=== PATIENT | male | born 1950 | race Caucasian/White ===

== ENCOUNTER 2017-07-31 08:54 | Inpatient (IN) | payer MEDICARE, MEDICAID ==
[2017-07-31 08:54] VITALS: PULSE 160
[2017-07-31 08:57] VITALS: BMI 33.3
[2017-07-31] MEDS ORDERED: Sodium Chloride 0.9% 1,000 ML IV ONE (09:14)
--- NOTE | 2017-07-31 09:14 | C.PDOC ---
History Of Present Illness Patient is a 67 yo male, with PMHx of PVD, who presents to the ED with a complaint of bilateral leg pain. Patient was referred to ED by Dr. Anguiano. He reports R groin and R hip pain with associated swelling; reports L calf tightness and numbness. Symptoms have been persistent for the last year since a L femoral/popliteal bypass last year, reports worsening pain since procedure. He notes physical therapy worsened symptoms immediately after surgery. Patient reports to have taken blood thinners but has stopped taking them for the past 3- 4 months; takes Tylenol and Tramadol as needed. Denies chest pain, shortness of breath, or other associated symptoms. Time Seen by Provider: 07/31/17 09:03 Chief Complaint (Nursing): Lower Extremity Problem/Injury History Per: Patient History/Exam Limitations: no limitations Onset/Duration Of Symptoms: Days, Persistent Current Symptoms Are (Timing): Still Present - Hip Currently Unable To: Bear Weight (uses walker and wheelchair. ) - Knee Currently Unable To: Bear Weight Past Medical History Reviewed: Historical Data, Nursing Documentation, Vital Signs Vital Signs: Last Vital Signs Temp 97.7 F 07/31/17 08:58 Pulse 62 07/31/17 08:58 Resp 20 07/31/17 08:58 BP 107/66 07/31/17 08:58 Pulse Ox 97 07/31/17 09:47 - Medical History PMH: Anemia, Benign Prostatic Hyperplasia, Depression, HIV, HTN, Hypercholesterolemia, Peripheral Edema Denies: Hepatitis - [facility] BYPASS L FEM ART TO POPLIT ART WITH AUTOL VN, OPEN APPROACH (05/31/16) OCCLUSION OF LEFT POPLITEAL ARTERY, OPEN APPROACH (05/31/16) REPAIR RIGHT FEMORAL ARTERY, OPEN APPROACH (03/31/16) TRANSFUSE NONAUT RED BLOOD CELLS IN PERIPH VEIN, PERC (05/31/16) Family History: States: Unknown Family Hx - Social History Hx Alcohol Use: Yes Hx Substance Use: Yes - Immunization History Hx Tetanus Toxoid Vaccination: No Hx Influenza Vaccination: No Hx Pneumococcal Vaccination: No Review Of Systems Constitutional: Negative for: Fever, Chills Cardiovascular: Negative for: Chest Pain, Palpitations, Edema Respiratory: Negative for: Shortness of Breath Gastrointestinal: Negative for: Nausea, Vomiting Musculoskeletal: Positive for: Leg Pain Physical Exam - Physical Exam Appears: Well, Non-toxic, In Acute Distress (mild. ) Skin: Normal Color, Warm, Dry Head: Atraumatic, Normacephalic Oral Mucosa: Moist Chest: Symmetrical Cardiovascular: Rhythm Regular, No Murmur Respiratory: Normal Breath Sounds, No Rales, No Rhonchi, No Wheezing Gastrointestinal/Abdominal: Soft, No Tenderness Extremity: Tenderness, No Pedal Edema, Capillary Refill (< 2 sec.), Other (good profusion; chronic post-op scarring, no mass, skin intact. ) Pulses: Left Dorsalis Pedis: Normal, Right Dorsalis Pedis: Normal Neurological/Psych: Oriented x3, Normal Speech, Normal Motor, Normal Sensation Gait: With Assistance ED Course And Treatment - Laboratory Results Result Diagrams: 07/31/17 09:35 07/31/17 09:35 ECG: Interpreted By Me ECG Rhythm: Sinus Bradycardia Rate From EC (bpm) O2 Sat by Pulse Oximetry: 97 (Room air) Pulse Ox Interpretation: Normal - Radiology CXR: Interpreted by Me CXR Interpretation: Yes: No Acute Disease Progress - Re-Evaluation Re-evaluation Note: 07/31/17 09:14 Blood work, EKG, UA, and CXR ordered; Morphine and IV fluids administered. 07/31/17 09:[address] Glez - agrees upon admission. - Data Reviewed Data Reviewed: Lab, Diagnostic imaging, EKG, Old records Disposition Counseled Patient/Family Regarding: Studies Performed, Diagnosis - Disposition Disposition: HOSPITALIZED Disposition Time: 09:34 Condition: STABLE Forms: [facility] (Italian) - POA Present On Arrival: None - Clinical Impression Clinical Impression: PVD (peripheral vascular disease) with claudication - Scribe Statement The provider has reviewed the documentation as recorded by the Scribe Amber Peña All medical record entries made by the Scribe were at my direction and personally dictated by me. I have reviewed the chart and agree that the record accurately reflects my personal performance of the history, physical exam, medical decision making, and the department course for this patient. I have also personally directed, reviewed, and agree with the discharge instructions and disposition. Decision To Admit - Pt Status Changed To: Hospital Disposition Of: Inpatient - Admit Certification Admit to Inpatient:: After my assessment, the patient will require hospitalization for at least two midnights. This is because of the severity of symptoms shown, intensity of services needed, and/or the medical risk in this patient being treated as an outpatient. - InPatient: Physician Admission Certification: I certify that this patient requires 2 or more midnights of care for the following reason:: SEE NOTE - . Bed Request Type: Regular Admitting Physician: George Glez Patient Diagnosis: PVD (peripheral vascular disease) with claudication
--- NOTE | 2017-07-31 09:38 | RAD ---
PROCEDURE: CHEST RADIOGRAPH, 1 VIEW HISTORY: Pre Op COMPARISON: None available. FINDINGS: LUNGS: Poor inspiration with low lung volumes, mild crowded bronchovascular markings and mild bibasilar atelectasis. PLEURA: No pneumothorax or pleural fluid seen. CARDIOVASCULAR: Heart appears upper limits of normal/borderline enlarged. OSSEOUS STRUCTURES: No significant abnormalities. VISUALIZED UPPER ABDOMEN: Normal. OTHER FINDINGS: None. IMPRESSION: Poor inspiration with low lung volumes, mild crowded bronchovascular markings and mild bibasilar atelectasis.
[2017-07-31 09:41] LABS: BASO # 0.1 K/uL (0.0-0.2); BASO % 1.2 % (0.0-2.0); EOS % 15.8 % (0.0-4.0); HEMATOCRIT 39.2 % (35.0-51.0); LYMPH # 1.6 K/uL (1.0-4.3); LYMPH % 25.9 % (20.0-40.0); MEAN CORPUSCULAR HEMOGLOBIN 30.1 pg (27.0-31.0); MEAN CORPUSCULAR HGB CONC 33.1 g/dL (33.0-37.0); MEAN PLATELET VOLUME 9.3 fL (7.2-11.7); MONO # 0.7 K/uL (0.0-0.8); MONO % 12.1 % (0.0-10.0); NRBC % 0.1 % (0.0-2.0)
[2017-07-31 09:46] LABS: WHITE BLOOD COUNT 6.2 K/uL (4.8-10.8)
[2017-07-31 09:47] LABS: INR 1.1
[2017-07-31] MEDS ORDERED: Sodium Chloride 0.9% 1,000 ML ONE (09:48)
[2017-07-31 09:49] LABS: CHLORIDE 107 mmol/L (98-107); SODIUM 144 mmol/L (132-148)
[2017-07-31 09:50] LABS: POTASSIUM 4.6 mmol/L (3.6-5.2)
[2017-07-31 09:51] LABS: GFR AFRICAN-AMERICAN > 60
[2017-07-31 09:52] LABS: ALB/GLOB RATIO 0.9 (1.0-2.1); ALKALINE PHOSPHATASE 109 U/L (38-126); ALT/SGPT 78 U/L (21-72); AST/SGOT 61 U/L (17-59); BILIRUBIN,TOTAL 0.5 mg/dL (0.2-1.3); BLOOD UREA NITROGEN 22 mg/dL (9-20); CARBON DIOXIDE 24 mmol/L (22-30); GLUCOSE,RANDOM 93 mg/dL (75-110); TOTAL PROTEIN 7.6 g/dL (6.3-8.3)
[2017-07-31 09:53] LABS: CALCIUM 7.9 mg/dl (8.6-10.4)
--- NOTE | 2017-07-31 15:18 | CP.PCM.PN ---
Subjective - Date & Time of Evaluation Date of Evaluation: 07/31/17 Time of Evaluation: 15:14 - Subjective Subjective: plan right fem pop bypass previous 03/2016 ligation of ruptured popliteal aneurysm and subsequent repair of left side -2015 right leg symptoms have increased and had cta in may showing favorable anatomy for repair Objective - Vital Signs/Intake and Output Vital Signs (last 24 hours): Temp Pulse Resp BP Pulse Ox 97.4 F L 50 L 20 120/63 96 07/31/17 12:40 07/31/17 13:23 07/31/17 12:40 07/31/17 12:40 07/31/17 12:40 Intake and Output: 07/31/17 07/31/17 06:59 18:59 Intake Total 780 Balance 780 - Medications Medications: Current Medications Amiodarone HCl (Cordarone) 200 mg PO DAILY [facility] Aspirin (Aspirin Chewable) 81 mg PO DAILY [facility] Diltiazem HCl (Cardizem) 30 mg PO QID [facility] Divalproex Sodium (Depakote Sprinkles) 125 mg PO BID [facility] Docusate Sodium (Colace) 100 mg PO TID [facility] Last Admin: 07/31/17 14:01 Dose: 100 mg Efavirenz/Emtricitabine/Tenofovir (Atripla 600 Mg-200 Mg-300 Mg) 1 tab PO HS [facility] Famotidine (Pepcid) 20 mg PO DAILY [facility] Ferrous Sulfate (Feosol) 325 mg PO DAILY [facility] Fluoxetine HCl (Prozac) 40 mg PO DAILY [facility] Gabapentin (Neurontin) 100 mg PO TID [facility] Last Admin: 07/31/17 14:01 Dose: 100 mg Home Med (Amino Acids/Protein Hydrolys [Pro-Stat Profile Liquid]) 30 ml PO DAILY [facility] Hydrochlorothiazide (Microzide) 12.5 mg PO DAILY [facility] Sodium Chloride (Sodium Chloride 0.9%) 1,000 mls @ 100 mls/hr IV .Q10H ONE Stop: 07/31/17 19:13 Last Admin: 07/31/17 09:51 Dose: 100 mls/hr Isosorbide Mononitrate (Imdur) 30 mg PO DAILY [facility] Mirtazapine (Remeron) 7.5 mg PO HS [facility] Rosuvastatin Calcium (Crestor) 20 mg PO HS [facility] Tamsulosin HCl (Flomax) 0.4 mg PO DAILY [facility] Tramadol HCl (Ultram) 50 mg PO TID PRN PRN Reason: Pain, moderate (4-7) Last Admin: 07/31/17 14:29 Dose: 50 mg Trazodone HCl (Desyrel) 50 mg PO HS PRN PRN Reason: Insomnia - Labs Labs: 07/31/17 09:35 07/31/17 09:35 PT 12.4 SECONDS (9.7-12.2) H 07/31/17 09:35 INR 1.1 07/31/17 09:35 APTT 36 SECONDS (21-34) H 07/31/17 09:35
--- NOTE | 2017-07-31 15:54 | CP.PCM.PN ---
Subjective - Date & Time of Evaluation Date of Evaluation: 07/31/17 Time of Evaluation: 09:00 - Subjective Subjective: CC: b/l lower extremity numbness and tingling for approximately 1 year HPI: Patient is a 67 yo AA male with PMHx of PVD, BPH, Depression, HIV, HTN, HLD , Peripheral Edema, 3 prior MIs - who presents to the ED with a complaint of bilateral lower extremity numbness and tingling for approximately 1 year, with associated intermittent pain. Patient was seen by Dr. Anguiano last week for similar symptoms. More specifically, he reports right medial ankle numbness x1yr and left anterior langley numbness x1yr, progressively worsening after a L femoral/popliteal bypass on 04/2016. The intermittent pain of the b/l LE typically occurs 4-5 nights per week, when his feet swell (most notably after physical therapy). He rates the pain a 7/10, denies radiation, and finds relief with 2-3 tabs of Tylenol. Due to issues with circulation, he recently had a cardiac cath, which according to the patient, showed clean vessels (pt unsure of date). Since this cardiac cath, he is c/o mild right groin/thigh pain at the insertion site. He currently attends physical therapy 2 times per week, on and off for the last year. Patient reports to have taken blood thinners but has stopped taking them for the past 3-4 months. He Denies fevers, chills, chest pain, shortness of breath, abdominal pain, nausea, vomiting, or any other associated symptoms. PMHx: PVD, BPH, Depression, HIV, HTN, HLD, Peripheral Edema, 3 prior MIs PSHx: Right femoral artery repair (03/2016); Left femoral artery bypass (05/2016) , Cardiac cath - clean vessels per pt. (via R groin) Meds: see EMR Allergies: NKDA FamHx: Mom of CA at 29yo (unknown type); Dad in 80's (unknown cause) SocHx: Tobacco, EtOH, and heroin use socially (states has not used in several months). [place] disability. PMD: Dr. Glez Review of Systems: -Gen: denies fever, chills, headache, lethargy, weakness. -HEENT: denies dizziness, change in vision, change in hearing, sore throat, dysphagia, nasal congestion, mucous. -Cardio: denies chest pain, palpitations, lower extremity edema, orthopnea. -Resp: denies cough, dyspnea, hemoptysis, wheezing, pain on inspiration. -GI: denies abdominal pain, nausea/vomiting, diarrhea/constipation, hematochezia , hematemesis. -: denies dysuria, urinary freq, incontinence, hematuria, change in urinary stream. -MSK: +numbness/tingling of bilateral LE. +pain at R groin (prior cardiac cath site). denies back pain, muscle weakness, radiating pain. -Skin: denies itching, rash, lesions. -Neuro: denies confusion, numbness, tingling, focal weakness, radicular pain, syncope. -Psych: denies anxiety, depression, H/I, S/I, hallucinations. Objective - Vital Signs/Intake and Output Vital Signs (last 24 hours): Temp Pulse Resp BP Pulse Ox 97.4 F L 50 L 20 120/63 96 07/31/17 12:40 07/31/17 13:23 07/31/17 12:40 07/31/17 12:40 07/31/17 12:40 Intake and Output: 07/31/17 07/31/17 06:59 18:59 Intake Total 780 Balance 780 - Medications Medications: Current Medications Amiodarone HCl (Cordarone) 200 mg PO DAILY [facility] Aspirin (Aspirin Chewable) 81 mg PO DAILY [facility] Diltiazem HCl (Cardizem) 30 mg PO QID [facility] Divalproex Sodium (Depakote Sprinkles) 125 mg PO BID [facility] Docusate Sodium (Colace) 100 mg PO TID [facility] Last Admin: 07/31/17 14:01 Dose: 100 mg Efavirenz/Emtricitabine/Tenofovir (Atripla 600 Mg-200 Mg-300 Mg) 1 tab PO HS [facility] Famotidine (Pepcid) 20 mg PO DAILY [facility] Ferrous Sulfate (Feosol) 325 mg PO DAILY [facility] Fluoxetine HCl (Prozac) 40 mg PO DAILY [facility] Gabapentin (Neurontin) 100 mg PO TID [facility] Last Admin: 07/31/17 14:01 Dose: 100 mg Home Med (Amino Acids/Protein Hydrolys [Pro-Stat Profile Liquid]) 30 ml PO DAILY [facility] Hydrochlorothiazide (Microzide) 12.5 mg PO DAILY [facility] Sodium Chloride (Sodium Chloride 0.9%) 1,000 mls @ 100 mls/hr IV .Q10H ONE Stop: 07/31/17 19:13 Last Admin: 07/31/17 09:51 Dose: 100 mls/hr Isosorbide Mononitrate (Imdur) 30 mg PO DAILY [facility] Mirtazapine (Remeron) 7.5 mg PO HS [facility] Rosuvastatin Calcium (Crestor) 20 mg PO HS [facility] Tamsulosin HCl (Flomax) 0.4 mg PO DAILY [facility] Tramadol HCl (Ultram) 50 mg PO TID PRN PRN Reason: Pain, moderate (4-7) Last Admin: 07/31/17 14:29 Dose: 50 mg Trazodone HCl (Desyrel) 50 mg PO HS PRN PRN Reason: Insomnia - Labs Labs: 07/31/17 09:35 07/31/17 09:35 PT 12.4 SECONDS (9.7-12.2) H 07/31/17 09:35 INR 1.1 07/31/17 09:35 APTT 36 SECONDS (21-34) H 07/31/17 09:35 - Additional Findings Additional findings: - Constitutional Appears: No Acute Distress - Head Exam Head Exam: ATRAUMATIC, NORMAL INSPECTION, NORMOCEPHALIC - Eye Exam Eye Exam: EOMI, Normal appearance - ENT Exam ENT Exam: Mucous Membranes Moist - Neck Exam Neck exam: Positive for: Normal Inspection - Respiratory Exam Respiratory Exam: Clear to Auscultation Bilateral, NORMAL BREATHING PATTERN. absent: Wheezes - Cardiovascular Exam Cardiovascular Exam: REGULAR RHYTHM, +S1, +S2 - GI/Abdominal Exam GI & Abdominal Exam: Normal Bowel Sounds, Soft - Rectal Exam Rectal Exam: Deferred - Extremities Exam Extremities exam: Positive for: normal capillary refill. Negative for: calf tenderness, joint swelling, pedal edema Additional comments: right medial thigh tenderness right medial ankle numbness x1yr left anterior langley numbness x1yr scar noted on Left medial thigh running from thigh to calf (approx. 10 inches) - Neurological Exam Neurological exam: Alert, CN II-XII Intact, Oriented x3 - Psychiatric Exam Psychiatric exam: Normal Affect, Normal Mood - Skin Skin Exam: Warm, Dry, Intact Assessment and Plan - Assessment and Plan (Free Text) Assessment: PVD (peripheral vascular disease) with claudication 07/31: Pre-op preparation for tentative fem-pop bypass . f/u with Cardiology recs. EKG - sinus marissa Vascular surgery consult, Dr. 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 Atkins, f/u recs pre-op eval Crestor 20 mg PO HS [facility] Ultram 50 mg PO TID PRN f/u A1c, lipids, TSH, free T4 BPH Continue home meds Flomax) 0.4 mg PO DAILY [facility] HIV Continue home meds Efavirenz/Emtricitabine/Tenofovir (Atripla 600 Mg-200 Mg-300 Mg) 1 tab PO HS [facility] HTN BP 107/66 on admission Continue home meds Amiodarone HCl (Cordarone) 200 mg PO DAILY [facility] Diltiazem HCl (Cardizem) 30 mg PO QID [facility] - hold for HR <65bpm HCTZ 12.5 mg PO DAILY [facility] Imdur 30 mg PO DAILY [facility] Aspirin (Aspirin Chewable) 81 mg PO DAILY [facility] Depression Depakote Sprinkles 125 mg PO BID [facility] Prozac 40 mg PO DAILY [facility] Trazodone 50 mg PO HS PRN Remeron 7.5 mg PO HS [facility] Hx Anemia Continue home meds Feosol) 325 mg PO DAILY [facility] Prophylaxis SCDs Heparin 5000u SC Q8H Colace 100 mg PO TID [facility] Pepcid 20 mg PO DAILY [facility]
--- NOTE | 2017-07-31 16:20 | CP.PCM.CON ---
History of Present Illness - History of Present Illness History of Present Illness: CC: "My right and left legs hurt below the knees." Patient is a 67 year old male with a past medical history of BPH, depression, HIV, HTN and HLD, who complains of bilateral lower extremity pain below the knees. Patient states the pain began 1 year ago after having a femoral/popliteal bypass procedure on the left lower extremity. Patient states the pain is made better by Tramadol and worse by walking. Patient describes the quality of the pain as "burning" with associated numbness and a "pins and needles" sensation. Patient denies radiation and rates the pain in both legs as 7-8/10 in severity. Patient states the pain is worse at night. Patient denies chest pain, palpitations, shortness of breath, nausea, vomiting and diarrhea. PMH: BPH, Depression, HIV, HTN and HLD PSH: femoral/popliteal bypass (2016), unknown heart surgery Meds: see chart NKDA Review of Systems - Constitutional Constitutional: absent: Chills, Fever, Night Sweats - Cardiovascular Cardiovascular: absent: Chest Pain, Dyspnea on Exertion, Rapid Heart Rate - Respiratory Respiratory: absent: Dyspnea, Wheezing, Pain on Inspiration - Gastrointestinal Gastrointestinal: absent: Abdominal Pain, Constipation, Diarrhea, Nausea, Vomiting - Genitourinary Genitourinary: Difficulty Urinating, Urinary Frequency, Voiding Freq/Small Amts. absent: Dysuria - Musculoskeletal Musculoskeletal: Numbness, Tingling - Neurological Neurological: Burning Sensations, Paresthesias Past Patient History - Infectious Disease Hx of Infectious Diseases: None - Past Medical History & Family History Past Medical History?: Yes - Past Social History Smoking Status: Former Smoker - CARDIAC Hx Hypercholesterolemia: Yes Hx Hypertension: Yes Hx Peripheral Edema: Yes - PULMONARY Hx Tuberculosis: No - NEUROLOGICAL Hx Seizures: No - HEENT Hx HEENT Problems: No - RENAL Hx Chronic Kidney Disease: No - ENDOCRINE/METABOLIC Hx Endocrine Disorders: No - HEMATOLOGICAL/ONCOLOGICAL Hx Anemia: Yes Hx Human Immunodeficiency Virus (HIV): Yes - INTEGUMENTARY Hx Dermatological Problems: Yes (? OOZING RT. THIGH) Other/Comment: dry skin and feet - MUSCULOSKELETAL/RHEUMATOLOGICAL Hx Falls: No - GASTROINTESTINAL Hx Gastrointestinal Disorders: Yes Other/Comment: CONSTIPATION - GENITOURINARY/GYNECOLOGICAL Hx Sexually Transmitted Disorders: No - PSYCHIATRIC Hx Substance Use: No - SURGICAL HISTORY Hx Surgeries: Yes Other/Comment: fem pop 2015 right leg , may 2016 left leg fem pop by dr narayan - ANESTHESIA Hx Anesthesia: No Hx Anesthesia Reactions: No Meds Allergies/Adverse Reactions: Allergies Allergy/AdvReac Type Severity Reaction Status Date / Time No Known Allergies Allergy Verified 07/31/17 09:11 - Medications Medications: Current Medications Amiodarone HCl (Cordarone) 200 mg PO DAILY [facility] Aspirin (Aspirin Chewable) 81 mg PO DAILY [facility] Diltiazem HCl (Cardizem) 30 mg PO QID [facility] Divalproex Sodium (Depakote Sprinkles) 125 mg PO BID [facility] Docusate Sodium (Colace) 100 mg PO TID [facility] Last Admin: 07/31/17 14:01 Dose: 100 mg Efavirenz/Emtricitabine/Tenofovir (Atripla 600 Mg-200 Mg-300 Mg) 1 tab PO HS [facility] Famotidine (Pepcid) 20 mg PO DAILY [facility] Ferrous Sulfate (Feosol) 325 mg PO DAILY [facility] Fluoxetine HCl (Prozac) 40 mg PO DAILY [facility] Gabapentin (Neurontin) 100 mg PO TID [facility] Last Admin: 07/31/17 14:01 Dose: 100 mg Home Med (Amino Acids/Protein Hydrolys [Pro-Stat Profile Liquid]) 30 ml PO DAILY [facility] Hydrochlorothiazide (Microzide) 12.5 mg PO DAILY [facility] Sodium Chloride (Sodium Chloride 0.9%) 1,000 mls @ 100 mls/hr IV .Q10H ONE Stop: 07/31/17 19:13 Last Admin: 07/31/17 09:51 Dose: 100 mls/hr Isosorbide Mononitrate (Imdur) 30 mg PO DAILY [facility] Mirtazapine (Remeron) 7.5 mg PO HS [facility] Rosuvastatin Calcium (Crestor) 20 mg PO HS [facility] Tamsulosin HCl (Flomax) 0.4 mg PO DAILY [facility] Tramadol HCl (Ultram) 50 mg PO TID PRN PRN Reason: Pain, moderate (4-7) Last Admin: 07/31/17 14:29 Dose: 50 mg Trazodone HCl (Desyrel) 50 mg PO HS PRN PRN Reason: Insomnia Physical Exam - Constitutional Appears: Non-toxic, No Acute Distress, Unkempt - Head Exam Head Exam: ATRAUMATIC, NORMOCEPHALIC - Eye Exam Eye Exam: EOMI, PERRL Pupil Exam: PERRL - ENT Exam ENT Exam: Mucous Membranes Moist - Respiratory Exam Respiratory Exam: Clear to Auscultation Bilateral. absent: Rales, Rhonchi, Wheezes, Stridor - Cardiovascular Exam Cardiovascular Exam: Bradycardia, +S1, +S2. absent: Clicks, Diastolic murmur, Irregular Rhythm, Rubs, Systolic Murmur - GI/Abdominal Exam GI & Abdominal Exam: Normal Bowel Sounds, Rebound, Soft. absent: Distended, Firm, Guarding, Organomegaly, Tenderness - Rectal Exam Rectal Exam: Deferred - Extremities Exam Extremities exam: Positive for: calf tenderness, tenderness. Negative for: pedal pulses present - Back Exam Back exam: absent: CVA tenderness (L), CVA tenderness (R), rash noted - Neurological Exam Neurological exam: Alert, Oriented x3 Results - Vital Signs Recent Vital Signs: Last Vital Signs Temp 97.7 F 07/31/17 15:40 Pulse 51 L 07/31/17 15:40 Resp 20 07/31/17 15:40 BP 101/59 L 07/31/17 15:40 Pulse Ox 96 07/31/17 15:40 - Labs Result Diagrams: 07/31/17 09:35 07/31/17 09:35 Labs: Laboratory Results - last 24 hr 07/31/17 07/31/17 07/31/17 09:35 09:35 09:35 WBC 6.2 D RBC 4.31 L Hgb 13.0 D Hct 39.2 MCV 91.0 D MCH 30.1 MCHC 33.1 RDW 14.0 Plt Count 215 MPV 9.3 Neut % (Auto) 45.0 L Lymph % (Auto) 25.9 [place] % (Auto) 12.1 H Eos % (Auto) 15.8 H Baso % (Auto) 1.2 Neut # 2.8 Lymph # 1.6 [place] # 0.7 Eos # 1.0 H Baso # 0.1 PT 12.4 H INR 1.1 APTT 36 H Sodium 144 Potassium 4.6 Chloride 107 Carbon Dioxide 24 Anion Gap 17 BUN 22 H Creatinine 1.0 Est GFR ( Amer) > 60 Est GFR (Non-Af Amer) > 60 Random Glucose 93 Calcium 7.9 L Total Bilirubin 0.5 AST 61 H ALT 78 H D Alkaline Phosphatase 109 Total Protein 7.6 Albumin 3.6 Globulin 4.0 H Albumin/Globulin Ratio 0.9 L Blood Type Antibody Screen 07/31/17 09:35 WBC RBC Hgb Hct MCV MCH MCHC RDW Plt Count MPV Neut % (Auto) Lymph % (Auto) [place] % (Auto) Eos % (Auto) Baso % (Auto) Neut # Lymph # [place] # Eos # Baso # PT INR APTT Sodium Potassium Chloride Carbon Dioxide Anion Gap BUN Creatinine Est GFR ( Amer) Est GFR (Non-Af Amer) Random Glucose Calcium Total Bilirubin AST ALT Alkaline Phosphatase Total Protein Albumin Globulin Albumin/Globulin Ratio Blood Type O POSITIVE Antibody Screen Negative Assessment & Plan - Assessment and Plan (Free Text) Assessment: 67M with RLE claudication Plan: will obtain lower extremity vein mapping in preparation for bypass lower extremity ABIs type and screen pre-op clearance from primary tentative plan for OR fem-pop bypass d/w Dr Silvio Robison, PGY3
[2017-07-31] MEDS: Divalproex 125 mg Sprinkle Capsule PO SCH (17:30)
[2017-07-31] MEDS: Efavirenz/Emtricitabine/Teno 1 TAB PO SCH (21:34)
[2017-08-01] MEDS ORDERED: Aminophylline 25 mg/ml Inj ONE (07:26)
[2017-08-01 08:01] LABS: BASO # 0.1 K/uL (0.0-0.2); BASO % 1.4 % (0.0-2.0); EOS # 0.9 K/uL (0.0-0.7); EOS % 16.7 % (0.0-4.0); HEMATOCRIT 38.3 % (35.0-51.0); LYMPH # 1.6 K/uL (1.0-4.3); LYMPH % 29.5 % (20.0-40.0); MEAN CELL VOLUME 90.5 fL (80.0-94.0); MEAN CORPUSCULAR HEMOGLOBIN 29.9 pg (27.0-31.0); MEAN PLATELET VOLUME 9.6 fL (7.2-11.7); MONO # 0.6 K/uL (0.0-0.8); MONO % 11.1 % (0.0-10.0); NRBC % 0.2 % (0.0-2.0); RED CELL DISTRIBUTION WIDTH 13.6 % (11.5-14.5); WHITE BLOOD COUNT 5.4 K/uL (4.8-10.8)
[2017-08-01 08:12] LABS: INR 1.1
[2017-08-01 08:23] LABS: CHLORIDE 108 mmol/L (98-107); POTASSIUM 4.3 mmol/L (3.6-5.2); SODIUM 139 mmol/L (132-148)
[2017-08-01 08:25] LABS: AST/SGOT 74 U/L (17-59); BILIRUBIN,TOTAL 0.5 mg/dL (0.2-1.3); BLOOD UREA NITROGEN 24 mg/dL (9-20); CARBON DIOXIDE 23 mmol/L (22-30); CHOLESTEROL 130 mg/dL (0-199); GFR AFRICAN-AMERICAN > 60; TOTAL PROTEIN 7.3 g/dL (6.3-8.3)
[2017-08-01 08:26] LABS: ALKALINE PHOSPHATASE 96 U/L (38-126); ALT/SGPT 79 U/L (21-72); CALCIUM 7.8 mg/dl (8.6-10.4); GLUCOSE,RANDOM 78 mg/dL (75-110); MAGNESIUM 1.8 mg/dL (1.6-2.3); PHOSPHOROUS 4.2 mg/dL (2.5-4.5)
[2017-08-01 08:34] LABS: ALB/GLOB RATIO 0.9 (1.0-2.1)
--- NOTE | 2017-08-01 08:41 | CP.PCM.PN ---
Subjective - Date & Time of Evaluation Date of Evaluation: 08/01/17 Time of Evaluation: 08:15 - Subjective Subjective: stress test performed. await nuclear images. Objective - Vital Signs/Intake and Output Vital Signs (last 24 hours): Temp Pulse Resp BP Pulse Ox 98.0 F 52 L 20 120/71 94 L 08/01/17 07:10 08/01/17 07:10 08/01/17 07:10 08/01/17 07:10 08/01/17 07:10 Intake and Output: 08/01/17 08/01/17 06:59 18:59 Intake Total 740 Output Total 1510 Balance -770 - Medications Medications: Current Medications Amiodarone HCl (Cordarone) 200 mg PO DAILY [facility] Aspirin (Aspirin Chewable) 81 mg PO DAILY [facility] Diltiazem HCl (Cardizem) 30 mg PO QID [facility] Divalproex Sodium (Depakote Sprinkles) 125 mg PO BID [facility] Last Admin: 07/31/17 17:30 Dose: 125 mg Docusate Sodium (Colace) 100 mg PO TID [facility] Last Admin: 07/31/17 17:29 Dose: 100 mg Efavirenz/Emtricitabine/Tenofovir (Atripla 600 Mg-200 Mg-300 Mg) 1 tab PO HS [facility] Last Admin: 07/31/17 21:34 Dose: 1 tab Famotidine (Pepcid) 20 mg PO DAILY [facility] Ferrous Sulfate (Feosol) 325 mg PO DAILY [facility] Fluoxetine HCl (Prozac) 40 mg PO DAILY [facility] Gabapentin (Neurontin) 100 mg PO TID [facility] Last Admin: 07/31/17 17:29 Dose: 100 mg Heparin Sodium (Porcine) (Heparin) 5,000 units SC Q8 [facility] Last Admin: 08/01/17 05:32 Dose: 5,000 units Home Med (Amino Acids/Protein Hydrolys [Pro-Stat Profile Liquid]) 30 ml PO DAILY [facility] Hydrochlorothiazide (Microzide) 12.5 mg PO DAILY [facility] Isosorbide Mononitrate (Imdur) 30 mg PO DAILY [facility] Mirtazapine (Remeron) 7.5 mg PO HS [facility] Last Admin: 07/31/17 21:34 Dose: 7.5 mg Rosuvastatin Calcium (Crestor) 20 mg PO HS [facility] Last Admin: 07/31/17 21:37 Dose: 20 mg Tamsulosin HCl (Flomax) 0.4 mg PO DAILY [facility] Tramadol HCl (Ultram) 50 mg PO TID PRN PRN Reason: Pain, moderate (4-7) Last Admin: 08/01/17 00:18 Dose: 50 mg Trazodone HCl (Desyrel) 50 mg PO HS PRN PRN Reason: Insomnia - Labs Labs: 08/01/17 07:32 08/01/17 07:32 PT 12.6 SECONDS (9.7-12.2) H 08/01/17 07:32 INR 1.1 08/01/17 07:32 APTT 41 SECONDS (21-34) H D 08/01/17 07:32
--- NOTE | 2017-08-01 08:41 | CP.PCM.CON ---
History of Present Illness - History of Present Illness History of Present Illness: patient seen/examined. Patient is a 67 year old male with a history of CAD, PAD with known SFA occlusion being admitted for possible R fem pop bypass. The patient was found to have SFA occlusion on CT angiogram. He complains of dyspnea on exertion and angina. Symptoms occur intermittently, but have been progressive. Review of Systems - Constitutional Constitutional: absent: As Per HPI, Anorexia, Chills, Daytime Sleepiness, Excessive Sweating, Fatigue, Fever, Frequent Falls, Headache, Increased Appetite , Lethargy, Malaise, Night Sweats, Snoring, Sleep Apnea, Weight Gain, Weight Loss, Weakness, Other - EENT Eyes: absent: As Per HPI, Blind Spots, Blurred Vision, Change in Vision, Decreased Night Vision, Diplopia, Discharge, Dry Eye, Exophthalmos, Floaters, Irritation, Itchy Eyes, Loss of Peripheral Vision, Pain, Photophobia, Requires Corrective Lenses, Sees Flashes, Spots in Vision, Tunnel Vision, Other Visual Disturbances, Loss of Vision, Other Ears: absent: As Per HPI, Decreased Hearing, Ear Discharge, Ear Pain, Tinnitus, Abnormal Hearing, Disequilibrium, Dizziness, Other Nose/Mouth/Throat: absent: As Per HPI, Epistaxis, Nasal Congestion, Nasal Discharge, Nasal Obstruction, Nasal Trauma, Nose Pain, Post Nasal Drip, Sinus Pain, Sinus Pressure, Bleeding Gums, Change in Voice, Dental Pain, Dry Mouth, Dysphagia, Halitosis, Hoarsness, Lip Swelling, Mouth Lesions, Mouth Pain, Odynophagia, Sore Throat, Throat Swelling, Tongue Swelling, Facial Pain, Neck Pain, Neck Mass, Other - Cardiovascular Cardiovascular: Chest Pain at Rest, Dyspnea - Respiratory Respiratory: Dyspnea - Gastrointestinal Gastrointestinal: absent: As Per HPI, Abdominal Pain, Belching, Bloating, Change in Bowel Habits, Change in Stool Character, Coffee Ground Emesis, Constipation, Cramping, Diarrhea, Dyspepsia, Dysphagia, Early Satiety, Excessive Flatus, Fecal Incontinence, Heartburn, Hematemesis, Hematochezia, Loose Stools, Melena, Nausea, Odynophagia, Temesmus, Vomiting, Other - Genitourinary Genitourinary: absent: As Per HPI, Change in Urinary Stream, Difficulty Urinating, Dysuria, Flank Pain, Hematuria, Pyuria, Nocturia, Urinary Incontinence, Urinary Frequency, Urinary Hesitance, Urinary Urgency, Voiding Freq/Small Amts, Freq UTI, Hx Renal/Bladder Calculi, Hx /Renal Surgery, Bladder Distension, Other - Musculoskeletal Musculoskeletal: absent: As Per HPI, Abnormal Gait, Arthralgias, Atrophy, Back Pain, Deformity, Joint Swelling, Limited Range of Motion, Loss of Height, Muscle Cramps, Muscle Weakness, Myalgias, Neck Pain, Numbness, Radiating Pain into Limb, Stiffness, Tingling, Other - Integumentary Integumentary: absent: As Per HPI, Acne, Alopecia, Bleeding Lesions, Change in Hair, Change in Nails, Change in Pigmentation, Changing Lesions, Dry Skin, Erythema, Furuncle, Hirsutism, Lesions, New Lesions, Non-Healing Lesions, Photosensitivity, Pruritus, Rash, Skin Pain, Skin Ulcer, Sores, Striae, Swelling , Unusual Bruising, Wounds, Jaundice, Other - Neurological Neurological: absent: As Per HPI, Abnormal Gait, Abnormal Hearing, Abnormal Movements, Abnormal Speech, Behavioral Changes, Burning Sensations, Confusion, Convulsions, Disequilibrium, Dizziness, Numbness, Focal Weakness, Frequent Falls , Headaches, Lack of Coordination, Loss of Vision, Memory Loss, Paresthesias, Radicular Pain, Restless Legs, Sensory Deficit, Syncope, Tingling, Tremor, Vertigo, Weakness, Other Visual Disturbances, Other - Psychiatric Psychiatric: absent: As Per HPI, Abnormal Sleep Pattern, Anhedonia, Anxiety, Auditory Hallucinations, Behavioral Changes, Change in Appetite, Change in Libido, Confusion, Depression, Difficulty Concentrating, Hallucinations, Homicidal Ideation, Hopelessness, Irritability, Memory Loss, Mood Swings, Panic Attacks, Paranoia, Suicidal Ideation, Visual Hallucinations, Tactile Hallucinations, Other - Endocrine Endocrine: absent: As Per HPI, Change in Body Appearance, Change in Libido, Cold Intolorance, Deepening of Voice, Excessive Sweating, Fatigue, Flushing, Heat Intolorance, Increase in Ring/Shoe/Hat Size, Palpitations, Polydipsia, Polyphagia, Polyuria, Other Past Patient History - Infectious Disease Hx of Infectious Diseases: None - Past Medical History & Family History Past Medical History?: Yes - Past Social History Smoking Status: Former Smoker - CARDIAC Hx Hypercholesterolemia: Yes Hx Hypertension: Yes Hx Peripheral Edema: Yes - PULMONARY Hx Tuberculosis: No - NEUROLOGICAL Hx Seizures: No - HEENT Hx HEENT Problems: No - RENAL Hx Chronic Kidney Disease: No - ENDOCRINE/METABOLIC Hx Endocrine Disorders: No - HEMATOLOGICAL/ONCOLOGICAL Hx Anemia: Yes Hx Human Immunodeficiency Virus (HIV): Yes - INTEGUMENTARY Hx Dermatological Problems: Yes (? OOZING RT. THIGH) Other/Comment: dry skin and feet - MUSCULOSKELETAL/RHEUMATOLOGICAL Hx Falls: No - GASTROINTESTINAL Hx Gastrointestinal Disorders: Yes Other/Comment: CONSTIPATION - GENITOURINARY/GYNECOLOGICAL Hx Sexually Transmitted Disorders: No - PSYCHIATRIC Hx Substance Use: No - SURGICAL HISTORY Hx Surgeries: Yes Other/Comment: fem pop 2015 right leg , may 2016 left leg fem pop by dr naryaan - ANESTHESIA Hx Anesthesia: No Hx Anesthesia Reactions: No Meds Home Medications: Home Medication List Medication Instructions Recorded Confirmed Type Amiodarone [Cordarone] 200 mg PO DAILY tab 08/03/17 Rx Levothyroxine [Synthroid] 25 mcg PO DAILY@0630 tab 08/03/17 Rx Morphine [Morphine Extended 15 mg PO Q12 08/03/17 Rx Release Tab] diltiaZEM CD [Cardizem CD] 120 mg PO DAILY #30 c24 08/03/17 Rx Allergies/Adverse Reactions: Allergies Allergy/AdvReac Type Severity Reaction Status Date / Time No Known Allergies Allergy Verified 07/31/17 09:11 - Medications Medications: Current Medications Amiodarone HCl (Cordarone) 200 mg PO DAILY [facility] Aspirin (Aspirin Chewable) 81 mg PO DAILY [facility] Diltiazem HCl (Cardizem) 30 mg PO QID [facility] Divalproex Sodium (Depakote Sprinkles) 125 mg PO BID [facility] Last Admin: 07/31/17 17:30 Dose: 125 mg Docusate Sodium (Colace) 100 mg PO TID [facility] Last Admin: 07/31/17 17:29 Dose: 100 mg Efavirenz/Emtricitabine/Tenofovir (Atripla 600 Mg-200 Mg-300 Mg) 1 tab PO [facility] Last Admin: 07/31/17 21:34 Dose: 1 tab Famotidine (Pepcid) 20 mg PO DAILY [facility] Ferrous Sulfate (Feosol) 325 mg PO DAILY [facility] Fluoxetine HCl (Prozac) 40 mg PO DAILY [facility] Gabapentin (Neurontin) 100 mg PO TID [facility] Last Admin: 07/31/17 17:29 Dose: 100 mg Heparin Sodium (Porcine) (Heparin) 5,000 units SC Q8 [facility] Last Admin: 08/01/17 05:32 Dose: 5,000 units Home Med (Amino Acids/Protein Hydrolys [Pro-Stat Profile Liquid]) 30 ml PO DAILY [facility] Hydrochlorothiazide (Microzide) 12.5 mg PO DAILY [facility] Isosorbide Mononitrate (Imdur) 30 mg PO DAILY [facility] Mirtazapine (Remeron) 7.5 mg PO HS [facility] Last Admin: 07/31/17 21:34 Dose: 7.5 mg Rosuvastatin Calcium (Crestor) 20 mg PO HS [facility] Last Admin: 07/31/17 21:37 Dose: 20 mg Tamsulosin HCl (Flomax) 0.4 mg PO DAILY [facility] Tramadol HCl (Ultram) 50 mg PO TID PRN PRN Reason: Pain, moderate (4-7) Last Admin: 08/01/17 00:18 Dose: 50 mg Trazodone HCl (Desyrel) 50 mg PO HS PRN PRN Reason: Insomnia Physical Exam - Constitutional Appears: Non-toxic - Head Exam Head Exam: NORMAL INSPECTION - Eye Exam Eye Exam: Normal appearance - ENT Exam ENT Exam: Mucous Membranes Moist - Neck Exam Neck exam: Positive for: Normal Inspection - Respiratory Exam Respiratory Exam: NORMAL BREATHING PATTERN - Cardiovascular Exam Cardiovascular Exam: REGULAR RHYTHM - GI/Abdominal Exam GI & Abdominal Exam: Normal Bowel Sounds - Rectal Exam Rectal Exam: Deferred - Extremities Exam Extremities exam: Negative for: pedal edema - Back Exam Back exam: NORMAL INSPECTION - Neurological Exam Neurological exam: Alert, Oriented x3 - Psychiatric Exam Psychiatric exam: Normal Affect - Skin Skin Exam: Normal Color Results - Vital Signs Recent Vital Signs: Last Vital Signs Temp 98.0 F 08/01/17 07:10 Pulse 52 L 08/01/17 07:10 Resp 20 08/01/17 07:10 BP 120/71 08/01/17 07:10 Pulse Ox 94 L 08/01/17 07:10 - Labs Result Diagrams: 08/03/17 07:52 08/03/17 07:52 Labs: Laboratory Results - last 24 hr 07/31/17 07/31/17 07/31/17 09:35 09:35 09:35 WBC 6.2 D RBC 4.31 L Hgb 13.0 D Hct 39.2 MCV 91.0 D MCH 30.1 MCHC 33.1 RDW 14.0 Plt Count 215 MPV 9.3 Neut % (Auto) 45.0 L Lymph % (Auto) 25.9 [place] % (Auto) 12.1 H Eos % (Auto) 15.8 H Baso % (Auto) 1.2 Neut # 2.8 Lymph # 1.6 [place] # 0.7 Eos # 1.0 H Baso # 0.1 PT 12.4 H INR 1.1 APTT 36 H Sodium 144 Potassium 4.6 Chloride 107 Carbon Dioxide 24 Anion Gap 17 BUN 22 H Creatinine 1.0 Est GFR ( Amer) > 60 Est GFR (Non-Af Amer) > 60 Random Glucose 93 Hemoglobin A1c Calcium 7.9 L Phosphorus Magnesium Total Bilirubin 0.5 AST 61 H ALT 78 H D Alkaline Phosphatase 109 Total Protein 7.6 Albumin 3.6 Globulin 4.0 H Albumin/Globulin Ratio 0.9 L Triglycerides Cholesterol HDL Cholesterol Blood Type Antibody Screen 07/31/17 08/01/17 08/01/17 09:35 07:32 07:32 WBC 5.4 RBC 4.23 L Hgb 12.6 Hct 38.3 MCV 90.5 MCH 29.9 MCHC 33.0 RDW 13.6 Plt Count 212 MPV 9.6 Neut % (Auto) 41.3 L Lymph % (Auto) 29.5 [place] % (Auto) 11.1 H Eos % (Auto) 16.7 H Baso % (Auto) 1.4 Neut # 2.2 Lymph # 1.6 [place] # 0.6 Eos # 0.9 H Baso # 0.1 PT 12.6 H INR 1.1 APTT 41 H D Sodium Potassium Chloride Carbon Dioxide Anion Gap BUN Creatinine Est GFR ( Amer) Est GFR (Non-Af Amer) Random Glucose Hemoglobin A1c Calcium Phosphorus Magnesium Total Bilirubin AST ALT Alkaline Phosphatase Total Protein Albumin Globulin Albumin/Globulin Ratio Triglycerides Cholesterol HDL Cholesterol Blood Type O POSITIVE Antibody Screen Negative 08/01/17 08/01/17 07:32 07:32 WBC RBC Hgb Hct MCV MCH MCHC RDW Plt Count MPV Neut % (Auto) Lymph % (Auto) [place] % (Auto) Eos % (Auto) Baso % (Auto) Neut # Lymph # [place] # Eos # Baso # PT INR APTT Sodium 139 Potassium 4.3 Chloride 108 H Carbon Dioxide 23 Anion Gap 12 BUN 24 H Creatinine 1.1 Est GFR ( Amer) > 60 Est GFR (Non-Af Amer) > 60 Random Glucose 78 Hemoglobin A1c 6.4 Calcium 7.8 L Phosphorus 4.2 Magnesium 1.8 Total Bilirubin 0.5 AST 74 H D ALT 79 H Alkaline Phosphatase 96 Total Protein 7.3 Albumin 3.4 L Globulin 4.0 H Albumin/Globulin Ratio 0.9 L Triglycerides 94 Cholesterol 130 HDL Cholesterol 59 Blood Type Antibody Screen - EKG Data EKG Interpreted by: Myself EKG shows normal: Sinus rhythm Assessment & Plan (1) Angina at rest Assessment and Plan: patient has symptoms and risk factors concerning for angina. Recommend stress test prior to surgery. Status: Acute (2) HTN (hypertension) Assessment and Plan: blood pressure control Status: Acute (3) PVD (peripheral vascular disease) with claudication Assessment and Plan: for stress test prior to surgery Status: Acute
--- NOTE | 2017-08-01 09:55 | CP.PCM.PN ---
Subjective - Date & Time of Evaluation Date of Evaluation: 08/01/17 Time of Evaluation: 09:52 - Subjective Subjective: Patient was seen and examined at bedside. Patient complains of pain, numbness, and "pins and needles" from the knees down to feet bilaterally. His pain is a 2/ 10 with medications, and a 7/10 without medication. 12-point ROS otherwise negative. Objective - Vital Signs/Intake and Output Vital Signs (last 24 hours): Temp Pulse Resp BP Pulse Ox 98.0 F 52 L 20 120/71 94 L 08/01/17 07:10 08/01/17 07:10 08/01/17 07:10 08/01/17 07:10 08/01/17 07:10 Intake and Output: 08/01/17 08/01/17 06:59 18:59 Intake Total 740 Output Total 1510 Balance -770 - Medications Medications: Current Medications Amiodarone HCl (Cordarone) 200 mg PO DAILY [facility] Aspirin (Aspirin Chewable) 81 mg PO DAILY [facility] Diltiazem HCl (Cardizem) 30 mg PO QID [facility] Divalproex Sodium (Depakote Sprinkles) 125 mg PO BID [facility] Last Admin: 07/31/17 17:30 Dose: 125 mg Docusate Sodium (Colace) 100 mg PO TID [facility] Last Admin: 07/31/17 17:29 Dose: 100 mg Efavirenz/Emtricitabine/Tenofovir (Atripla 600 Mg-200 Mg-300 Mg) 1 tab PO HS [facility] Last Admin: 07/31/17 21:34 Dose: 1 tab Famotidine (Pepcid) 20 mg PO DAILY [facility] Ferrous Sulfate (Feosol) 325 mg PO DAILY [facility] Fluoxetine HCl (Prozac) 40 mg PO DAILY [facility] Gabapentin (Neurontin) 100 mg PO TID [facility] Last Admin: 07/31/17 17:29 Dose: 100 mg Heparin Sodium (Porcine) (Heparin) 5,000 units SC Q8 [facility] Last Admin: 08/01/17 05:32 Dose: 5,000 units Home Med (Amino Acids/Protein Hydrolys [Pro-Stat Profile Liquid]) 30 ml PO DAILY [facility] Hydrochlorothiazide (Microzide) 12.5 mg PO DAILY [facility] Isosorbide Mononitrate (Imdur) 30 mg PO DAILY [facility] Mirtazapine (Remeron) 7.5 mg PO HS [facility] Last Admin: 07/31/17 21:34 Dose: 7.5 mg Rosuvastatin Calcium (Crestor) 20 mg PO HS [facility] Last Admin: 07/31/17 21:37 Dose: 20 mg Tamsulosin HCl (Flomax) 0.4 mg PO DAILY [facility] Tramadol HCl (Ultram) 50 mg PO TID PRN PRN Reason: Pain, moderate (4-7) Last Admin: 08/01/17 00:18 Dose: 50 mg Trazodone HCl (Desyrel) 50 mg PO HS PRN PRN Reason: Insomnia - Labs Labs: 08/01/17 07:32 08/01/17 07:32 PT 12.6 SECONDS (9.7-12.2) H 08/01/17 07:32 INR 1.1 08/01/17 07:32 APTT 41 SECONDS (21-34) H D 08/01/17 07:32 - Head Exam Head Exam: ATRAUMATIC, NORMAL INSPECTION - Eye Exam Eye Exam: EOMI, Normal appearance - Respiratory Exam Respiratory Exam: Clear to Ausculation Bilateral. absent: Rales, Rhonchi, Wheezes, Respiratory Distress - Cardiovascular Exam Cardiovascular Exam: +S1, +S2. absent: Bradycardia, Tachycardia - GI/Abdominal Exam GI & Abdominal Exam: Soft, Normal Bowel Sounds. absent: Tenderness - Extremities Exam Extremities Exam: absent: Normal Inspection (Bilaterally: decreased pulses, ankle edema, chronic skin changes and discoloration; warm and dry) - Neurological Exam Neurological Exam: Alert, Awake - Psychiatric Exam Psychiatric exam: Normal Affect, Normal Mood - Skin Skin Exam: Dry, Intact, Warm Assessment and Plan - Assessment and Plan (Free Text) Assessment: 67 year old male with right lower extremity claudication. - Follow up lower extremity vein mapping and JOSÉ MANUEL. - Tentative plan for OR on for right fem-pop bypass. - Continue medical management as per hospitalist team.
[2017-08-01] MEDS: Levothyroxine 25 MCG TAB PO SCH (14:01)
[2017-08-01] MEDS: Divalproex 125 mg Sprinkle Capsule PO SCH ×2 (14:01→19:00)
[2017-08-01] MEDS: PROTEIN HYDROLYS PO SCH (14:03)
[2017-08-01] MEDS: AMINO ACIDS PO SCH (14:03)
--- NOTE | 2017-08-01 14:46 | CP.PCM.PN ---
Subjective - Date & Time of Evaluation Date of Evaluation: 08/01/17 Time of Evaluation: 10:40 - Subjective Subjective: PGY2 Medicine progress note for Dr. Glez's service: Patient seen and examined after nuclear stress test. Patient to have have fem- pop bypass tomorrow pending stress test results. Objective - Vital Signs/Intake and Output Vital Signs (last 24 hours): Temp Pulse Resp BP Pulse Ox 98 F 52 L 20 119/74 98 08/01/17 10:56 08/01/17 10:56 08/01/17 10:56 08/01/17 10:56 08/01/17 10:56 Intake and Output: 08/01/17 08/01/17 06:59 18:59 Intake Total 740 Output Total 1510 Balance -770 - Medications Medications: Current Medications Amiodarone HCl (Cordarone) 200 mg PO DAILY [facility] Last Admin: 08/01/17 12:58 Dose: Not Given Aspirin (Aspirin Chewable) 81 mg PO DAILY [facility] Last Admin: 08/01/17 10:53 Dose: 81 mg Diltiazem HCl (Cardizem) 30 mg PO QID [facility] Last Admin: 08/01/17 13:59 Dose: Not Given Divalproex Sodium (Depakote Sprinkles) 125 mg PO BID [facility] Last Admin: 08/01/17 14:01 Dose: 125 mg Docusate Sodium (Colace) 100 mg PO TID [facility] Last Admin: 08/01/17 14:01 Dose: 100 mg Efavirenz/Emtricitabine/Tenofovir (Atripla 600 Mg-200 Mg-300 Mg) 1 tab PO HS [facility] Last Admin: 07/31/17 21:34 Dose: 1 tab Famotidine (Pepcid) 20 mg PO DAILY [facility] Last Admin: 08/01/17 10:53 Dose: 20 mg Ferrous Sulfate (Feosol) 325 mg PO DAILY [facility] Last Admin: 08/01/17 11:00 Dose: 325 mg Fluoxetine HCl (Prozac) 40 mg PO DAILY [facility] Last Admin: 08/01/17 14:01 Dose: 40 mg Gabapentin (Neurontin) 100 mg PO TID [facility] Last Admin: 08/01/17 14:01 Dose: 100 mg Heparin Sodium (Porcine) (Heparin) 5,000 units SC Q8 [facility] Last Admin: 08/01/17 14:01 Dose: 5,000 units Home Med (Amino Acids/Protein Hydrolys [Pro-Stat Profile Liquid]) 30 ml PO DAILY [facility] Last Admin: 08/01/17 14:03 Dose: Not Given Hydrochlorothiazide (Microzide) 12.5 mg PO DAILY [facility] Last Admin: 08/01/17 10:53 Dose: 12.5 mg Isosorbide Mononitrate (Imdur) 30 mg PO DAILY [facility] Last Admin: 08/01/17 10:53 Dose: 30 mg Levothyroxine Sodium (Synthroid) 25 mcg PO DAILY@0630 [facility] Last Admin: 08/01/17 14:01 Dose: 25 mcg Mirtazapine (Remeron) 7.5 mg PO [facility] Last Admin: 07/31/17 21:34 Dose: 7.5 mg Rosuvastatin Calcium (Crestor) 20 mg PO [facility] Last Admin: 07/31/17 21:37 Dose: 20 mg Tamsulosin HCl (Flomax) 0.4 mg PO DAILY [facility] Last Admin: 08/01/17 10:53 Dose: 0.4 mg Tramadol HCl (Ultram) 50 mg PO TID PRN PRN Reason: Pain, moderate (4-7) Last Admin: 08/01/17 10:53 Dose: 50 mg Trazodone HCl (Desyrel) 50 mg PO PRN PRN Reason: Insomnia - Labs Labs: 08/01/17 07:32 08/01/17 07:32 PT 12.6 SECONDS (9.7-12.2) H 08/01/17 07:32 INR 1.1 08/01/17 07:32 APTT 41 SECONDS (21-34) H D 08/01/17 07:32 - Constitutional Appears: No Acute Distress - Head Exam Head Exam: ATRAUMATIC, NORMOCEPHALIC - Eye Exam Eye Exam: EOMI - ENT Exam ENT Exam: Mucous Membranes Moist - Respiratory Exam Respiratory Exam: Clear to Ausculation Bilateral, NORMAL BREATHING PATTERN - Cardiovascular Exam Cardiovascular Exam: +S1, +S2 - GI/Abdominal Exam GI & Abdominal Exam: Soft, Normal Bowel Sounds. absent: Tenderness - Extremities Exam Extremities Exam: Pedal Edema (b/l ankles) - Neurological Exam Neurological Exam: Alert, Awake - Psychiatric Exam Psychiatric exam: Normal Affect - Skin Skin Exam: Dry, Warm Additional comments: color changes b/l lower extremities Assessment and Plan - Assessment and Plan (Free Text) Assessment: PVD (peripheral vascular disease) with claudication 08/01: patient s/p nuclear stress test- results pending. F/U Cardiology recs for bypass 07/31: Pre-op preparation for tentative fem-pop bypass . f/u with Cardiology recs. EKG - sinus marissa Vascular surgery consult, Dr. 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 Atkins, f/u recs pre-op eval Crestor 20 mg PO HS [facility] Ultram 50 mg PO TID PRN f/u A1c, lipids, TSH, free T4 BPH Continue home meds Flomax) 0.4 mg PO DAILY [facility] HIV Continue home meds Efavirenz/Emtricitabine/Tenofovir (Atripla 600 Mg-200 Mg-300 Mg) 1 tab PO HS [facility] HTN BP 107/66 on admission Continue home meds Amiodarone HCl (Cordarone) 200 mg PO DAILY [facility] Diltiazem HCl (Cardizem) 30 mg PO QID [facility] - hold for HR <65bpm HCTZ 12.5 mg PO DAILY [facility] Imdur 30 mg PO DAILY [facility] Aspirin (Aspirin Chewable) 81 mg PO DAILY [facility] Depression Depakote Sprinkles 125 mg PO BID [facility] Prozac 40 mg PO DAILY [facility] Trazodone 50 mg PO HS PRN Remeron 7.5 mg PO HS [facility] Hx Anemia Continue home meds Feosol) 325 mg PO DAILY [facility] Prophylaxis SCDs Heparin 5000u SC Q8H Colace 100 mg PO TID [facility] Pepcid 20 mg PO DAILY [facility]
--- NOTE | 2017-08-01 18:38 | CP.PCM.PN ---
Subjective - Date & Time of Evaluation Date of Evaluation: 08/01/17 Time of Evaluation: 18:35 - Subjective Subjective: discussed with patient and events reviewed has adequate vein for bypass major issue is cause of pain in leg , initially felt to be caused by previous ligation of ruptured pop aneurysm. However JOSÉ MANUEL is over .6 and this should not cause leg pain except on severe exertion and the patient barely walks. Needs physical therapy etc no immediate plans for bypass Objective - Vital Signs/Intake and Output Vital Signs (last 24 hours): Temp Pulse Resp BP Pulse Ox 98 F 61 20 124/65 94 L 08/01/17 16:00 08/01/17 16:00 08/01/17 16:00 08/01/17 16:00 08/01/17 16:00 Intake and Output: 08/01/17 08/01/17 06:59 18:59 Intake Total 740 480 Output Total 1510 1100 Balance -770 -275 - Medications Medications: Current Medications Amiodarone HCl (Cordarone) 200 mg PO DAILY [facility] Last Admin: 08/01/17 12:58 Dose: Not Given Aspirin (Aspirin Chewable) 81 mg PO DAILY [facility] Last Admin: 08/01/17 10:53 Dose: 81 mg Diltiazem HCl (Cardizem) 30 mg PO QID [facility] Last Admin: 08/01/17 13:59 Dose: Not Given Divalproex Sodium (Depakote Sprinkles) 125 mg PO BID [facility] Last Admin: 08/01/17 14:01 Dose: 125 mg Docusate Sodium (Colace) 100 mg PO TID [facility] Last Admin: 08/01/17 14:01 Dose: 100 mg Efavirenz/Emtricitabine/Tenofovir (Atripla 600 Mg-200 Mg-300 Mg) 1 tab PO HS [facility] Last Admin: 07/31/17 21:34 Dose: 1 tab Famotidine (Pepcid) 20 mg PO DAILY [facility] Last Admin: 08/01/17 10:53 Dose: 20 mg Ferrous Sulfate (Feosol) 325 mg PO DAILY [facility] Last Admin: 08/01/17 11:00 Dose: 325 mg Fluoxetine HCl (Prozac) 40 mg PO DAILY [facility] Last Admin: 08/01/17 14:01 Dose: 40 mg Gabapentin (Neurontin) 100 mg PO TID [facility] Last Admin: 08/01/17 14:01 Dose: 100 mg Heparin Sodium (Porcine) (Heparin) 5,000 units SC Q8 [facility] Last Admin: 08/01/17 14:01 Dose: 5,000 units Home Med (Amino Acids/Protein Hydrolys [Pro-Stat Profile Liquid]) 30 ml PO DAILY [facility] Last Admin: 08/01/17 14:03 Dose: Not Given Hydrochlorothiazide (Microzide) 12.5 mg PO DAILY [facility] Last Admin: 08/01/17 10:53 Dose: 12.5 mg Isosorbide Mononitrate (Imdur) 30 mg PO DAILY [facility] Last Admin: 08/01/17 10:53 Dose: 30 mg Levothyroxine Sodium (Synthroid) 25 mcg PO DAILY@30 [facility] Last Admin: 08/01/17 14:01 Dose: 25 mcg Mirtazapine (Remeron) 7.5 mg PO HS [facility] Last Admin: 07/31/17 21:34 Dose: 7.5 mg Rosuvastatin Calcium (Crestor) 20 mg PO HS [facility] Last Admin: 07/31/17 21:37 Dose: 20 mg Tamsulosin HCl (Flomax) 0.4 mg PO DAILY [facility] Last Admin: 08/01/17 10:53 Dose: 0.4 mg Tramadol HCl (Ultram) 50 mg PO TID PRN PRN Reason: Pain, moderate (4-7) Last Admin: 08/01/17 10:53 Dose: 50 mg Trazodone HCl (Desyrel) 50 mg PO HS PRN PRN Reason: Insomnia - Labs Labs: 08/01/17 07:32 08/01/17 07:32 PT 12.6 SECONDS (9.7-12.2) H 08/01/17 07:32 INR 1.1 08/01/17 07:32 APTT 41 SECONDS (21-34) H D 08/01/17 07:32
--- NOTE | 2017-08-01 18:51 | CP.PCM.PN ---
Subjective - Date & Time of Evaluation Date of Evaluation: 08/01/17 Time of Evaluation: 18:50 - Subjective Subjective: nuclear perfusion imaging reviewed. ischemia of the anterior and anteroapical wall noted. Recommend cardiac cath. NPO after midnight, Objective - Vital Signs/Intake and Output Vital Signs (last 24 hours): Temp Pulse Resp BP Pulse Ox 98 F 61 20 124/65 94 L 08/01/17 16:00 08/01/17 16:00 08/01/17 16:00 08/01/17 16:00 08/01/17 16:00 Intake and Output: 08/01/17 08/01/17 06:59 18:59 Intake Total 740 480 Output Total 1510 1100 Balance -770 -620 - Medications Medications: Current Medications Amiodarone HCl (Cordarone) 200 mg PO DAILY [facility] Last Admin: 08/01/17 12:58 Dose: Not Given Aspirin (Aspirin Chewable) 81 mg PO DAILY [facility] Last Admin: 08/01/17 10:53 Dose: 81 mg Diltiazem HCl (Cardizem) 30 mg PO QID [facility] Last Admin: 08/01/17 13:59 Dose: Not Given Divalproex Sodium (Depakote Sprinkles) 125 mg PO BID [facility] Last Admin: 08/01/17 14:01 Dose: 125 mg Docusate Sodium (Colace) 100 mg PO TID [facility] Last Admin: 08/01/17 14:01 Dose: 100 mg Efavirenz/Emtricitabine/Tenofovir (Atripla 600 Mg-200 Mg-300 Mg) 1 tab PO HS [facility] Last Admin: 07/31/17 21:34 Dose: 1 tab Famotidine (Pepcid) 20 mg PO DAILY [facility] Last Admin: 08/01/17 10:53 Dose: 20 mg Ferrous Sulfate (Feosol) 325 mg PO DAILY [facility] Last Admin: 08/01/17 11:00 Dose: 325 mg Fluoxetine HCl (Prozac) 40 mg PO DAILY [facility] Last Admin: 08/01/17 14:01 Dose: 40 mg Gabapentin (Neurontin) 100 mg PO TID [facility] Last Admin: 08/01/17 14:01 Dose: 100 mg Heparin Sodium (Porcine) (Heparin) 5,000 units SC Q8 [facility] Last Admin: 08/01/17 14:01 Dose: 5,000 units Home Med (Amino Acids/Protein Hydrolys [Pro-Stat Profile Liquid]) 30 ml PO DAILY [facility] Last Admin: 08/01/17 14:03 Dose: Not Given Hydrochlorothiazide (Microzide) 12.5 mg PO DAILY [facility] Last Admin: 08/01/17 10:53 Dose: 12.5 mg Isosorbide Mononitrate (Imdur) 30 mg PO DAILY [facility] Last Admin: 08/01/17 10:53 Dose: 30 mg Levothyroxine Sodium (Synthroid) 25 mcg PO DAILY@0630 [facility] Last Admin: 08/01/17 14:01 Dose: 25 mcg Mirtazapine (Remeron) 7.5 mg PO HS [facility] Last Admin: 07/31/17 21:34 Dose: 7.5 mg Rosuvastatin Calcium (Crestor) 20 mg PO HS [facility] Last Admin: 07/31/17 21:37 Dose: 20 mg Tamsulosin HCl (Flomax) 0.4 mg PO DAILY [facility] Last Admin: 08/01/17 10:53 Dose: 0.4 mg Tramadol HCl (Ultram) 50 mg PO TID PRN PRN Reason: Pain, moderate (4-7) Last Admin: 08/01/17 10:53 Dose: 50 mg Trazodone HCl (Desyrel) 50 mg PO HS PRN PRN Reason: Insomnia - Labs Labs: 08/01/17 07:32 08/01/17 07:32 PT 12.6 SECONDS (9.7-12.2) H 08/01/17 07:32 INR 1.1 08/01/17 07:32 APTT 41 SECONDS (21-34) H D 08/01/17 07:32
[2017-08-01] MEDS: Efavirenz/Emtricitabine/Teno 1 TAB PO SCH (22:11)
[2017-08-02] MEDS: Levothyroxine 25 MCG TAB PO SCH (05:36)
[2017-08-02 08:16] LABS: BASO # 0.1 K/uL (0.0-0.2); EOS # 0.9 K/uL (0.0-0.7); EOS % 14.9 % (0.0-4.0); HEMATOCRIT 39.3 % (35.0-51.0); LYMPH # 1.3 K/uL (1.0-4.3); LYMPH % 21.6 % (20.0-40.0); MEAN CELL VOLUME 90.3 fL (80.0-94.0); MEAN CORPUSCULAR HEMOGLOBIN 30.3 pg (27.0-31.0); MEAN CORPUSCULAR HGB CONC 33.6 g/dL (33.0-37.0); MEAN PLATELET VOLUME 9.6 fL (7.2-11.7); MONO # 0.7 K/uL (0.0-0.8); MONO % 11.1 % (0.0-10.0); RED CELL DISTRIBUTION WIDTH 13.5 % (11.5-14.5); WHITE BLOOD COUNT 6.1 K/uL (4.8-10.8)
[2017-08-02 08:34] LABS: ALB/GLOB RATIO 0.8 (1.0-2.1); ALKALINE PHOSPHATASE 108 U/L (38-126); ALT/SGPT 82 U/L (21-72); AST/SGOT 78 U/L (17-59); BILIRUBIN,TOTAL 0.3 mg/dL (0.2-1.3); BLOOD UREA NITROGEN 22 mg/dL (9-20); CALCIUM 8.5 mg/dl (8.6-10.4); CARBON DIOXIDE 25 mmol/L (22-30); CHLORIDE 105 mmol/L (98-107); GFR AFRICAN-AMERICAN > 60; GLUCOSE,RANDOM 101 mg/dL (75-110); MAGNESIUM 1.8 mg/dL (1.6-2.3); POTASSIUM 4.1 mmol/L (3.6-5.2); SODIUM 140 mmol/L (132-148); TOTAL PROTEIN 7.8 g/dL (6.3-8.3)
[2017-08-02] MEDS ORDERED: Midazolam 2 MG/2 ML VIAL ONE (09:49)
[2017-08-02] MEDS ORDERED: Iodixanol 320 MG/ML 100 ML BOTTLE IV ONE (10:17)
[2017-08-02] MEDS: Divalproex 125 mg Sprinkle Capsule PO SCH ×2 (10:44→17:10)
[2017-08-02] MEDS: PROTEIN HYDROLYS PO SCH (10:44)
[2017-08-02] MEDS: AMINO ACIDS PO SCH (10:44)
--- NOTE | 2017-08-02 10:44 | VASCLAB ---
STUDY DESCRIPTION: HISTORY: eval rle ischemia PRIORS: None. TECHNIQUE: Pulse volume recording waveforms and segmental pressures of bilateral lower extremities at multiple levels were obtained. Ankle Brachial Indices (ABIs) were calculated. Report prepared by TY Vazquez, RVT RIGHT LOWER EXTREMITY: * Brachial artery: Pressure - 149 mmHg. * High thigh: Pressure - mmHg: Ratio - : PVR waveform - Pulsatile * Low thigh: Pressure - mmHg: Ratio - PVR waveform: Pulsatile * Calf: Pressure - 109 mmHg: Ratio - 0.71 PVR waveform: Reduced * Posterior tibial Artery: Pressure - 98 mmHg: Ratio - 0.64 PVR waveform: Reduced * Dorsalis pedis Artery: Pressure - 97 mmHg: Ratio - 0.63 PVR waveform: Reduced * Great toe: Pressure - mmHg: Ratio - PVR waveform: Ankle brachial index (JOSÉ MANUEL): 0.64 LEFT LOWER EXTREMITY: * Brachial artery: Pressure - 154 mmHg. * High thigh: Pressure - mmHg: Ratio - : PVR waveform - Pulsatile * Low thigh: Pressure - mmHg: Ratio - PVR waveform: Pulsatile * Calf: Pressure - 184 mmHg: Ratio - 1.19 PVR waveform: Pulsatile * Posterior tibial Artery: Pressure - 151 mmHg: Ratio - 0.98 PVR waveform: Pulsatile * Dorsalis pedis Artery: Pressure - 147 mmHg: Ratio - 0.95 PVR waveform: Pulsatile * Great toe: Pressure - mmHg: Ratio - PVR waveform: Ankle brachial index (JOSÉ MANUEL): 0.98 OTHER FINDINGS: Right: Left: IMPRESSION: Right: This exam reveals moderately decreased perfusion of the right lower extremity, noted at the superficial femoral and popliteal artery levels. Left: There was no evidence of hemodynamically significant arterial insufficiency in the left lower extremity. Recommend CT angiogram and possible endovascular revascularization.
--- NOTE | 2017-08-02 10:47 | VASCLAB ---
PROCEDURE: Lower Extremity Vein mapping. HISTORY: pre-op for bypass PRIORS: None. TECHNIQUE: Bilateral common femoral, femoral, popliteal and posterior tibial, peroneal and great saphenous veins were evaluated. Flow was assessed with color Doppler, compressibility, assessment of phasic flow and augmentation response. Report prepared by Arash Camp, BS, RVT FINDINGS: RIGHT: 1. Common Femoral Vein: Compressibility - Fully compressible: Thrombus - None : Flow - Phasic: Augmentation -Normal: Reflux - None. 2. Femoral Vein:Compressibility - Fully compressible: Thrombus - None 3. Popliteal Vein: Compressibility - Fully compressible: Thrombus - None 4. Posterior Tibial Vein: Compressibility - Fully compressible: Thrombus - None 5. Peroneal Vein:Compressibility - Fully compressible: Thrombus - None 6. Greater Saphenous Vein: Compressibility - Fully compressible: Thrombus - None 6.1. Thigh - Proximal Diameter: 0.69cm. Mid Diameter: 0.52cm. Distal Diameter: 0.65cm. Knee Diameter: 0.63cm 6.2. Calf - Proximal Diameter: 0.45cm. Mid Diameter:0.37cm. Distal Diameter: 0.40cm 6.3. Ankle - Diameter: 0.42cm LEFT: 1. Common Femoral Vein: Compressibility - Fully compressible: Thrombus - None : Flow - Phasic: Augmentation -Normal: Reflux - None. 2. Femoral Vein:Compressibility - Fully compressible: Thrombus - None 3. Popliteal Vein: Compressibility - Fully compressible: Thrombus - None 4. Posterior Tibial Vein: Compressibility - Fully compressible: Thrombus - None 5. Peroneal Vein:Compressibility - Fully compressible: Thrombus - None 6. Greater Saphenous Vein: Compressibility - Fully compressible: Thrombus - None 6.1. Thigh - Proximal Diameter: 0.44cm. Mid Diameter: 0.26cm. Distal Diameter: 0.26cm. Knee Diameter: 0.27cm 6.2. Calf - Proximal Diameter: 0.24cm. Mid Diameter:0.30cm. Distal Diameter: 0.27cm 6.3. Ankle - Diameter: 0.36cm OTHER FINDINGS: Right: None. Left: None. IMPRESSION: Right: Diameter measurements of the right greater saphenous vein are measured between 0.37 cm and 0.69 cm Left: Diameter measurements of the left greater saphenous vein are measured between 0.24 cm and 0.44 cm
--- NOTE | 2017-08-02 13:01 | CP.PCM.PN ---
Subjective - Date & Time of Evaluation Date of Evaluation: 08/02/17 Time of Evaluation: 11:00 - Subjective Subjective: cardaic cath performed. no signifcant CAD. recommend medical therapy. Objective - Vital Signs/Intake and Output Vital Signs (last 24 hours): Temp Pulse Resp BP Pulse Ox 97.6 F 63 20 128/71 95 08/02/17 08:00 08/02/17 08:00 08/02/17 08:00 08/02/17 08:00 08/02/17 08:00 Intake and Output: 08/02/17 08/02/17 06:59 18:59 Intake Total 720 Output Total 1850 Balance -1130 - Medications Medications: Current Medications Amiodarone HCl (Cordarone) 200 mg PO DAILY [facility] Last Admin: 08/01/17 12:58 Dose: Not Given Aspirin (Aspirin Chewable) 81 mg PO DAILY [facility] Last Admin: 08/01/17 10:53 Dose: 81 mg Diltiazem HCl (Cardizem) 30 mg PO QID [facility] Last Admin: 08/02/17 10:44 Dose: Not Given Divalproex Sodium (Depakote Sprinkles) 125 mg PO BID [facility] Last Admin: 08/02/17 10:44 Dose: Not Given Docusate Sodium (Colace) 100 mg PO TID [facility] Last Admin: 08/02/17 10:44 Dose: Not Given Efavirenz/Emtricitabine/Tenofovir (Atripla 600 Mg-200 Mg-300 Mg) 1 tab PO HS [facility] Last Admin: 08/01/17 22:11 Dose: 1 tab Famotidine (Pepcid) 20 mg PO DAILY [facility] Last Admin: 08/01/17 10:53 Dose: 20 mg Ferrous Sulfate (Feosol) 325 mg PO DAILY [facility] Last Admin: 08/01/17 11:00 Dose: 325 mg Fluoxetine HCl (Prozac) 40 mg PO DAILY [facility] Last Admin: 08/01/17 14:01 Dose: 40 mg Gabapentin (Neurontin) 100 mg PO TID [facility] Last Admin: 08/02/17 10:54 Dose: Not Given Heparin Sodium (Porcine) (Heparin) 5,000 units SC Q8 [facility] Last Admin: 08/02/17 05:38 Dose: Not Given Hydrochlorothiazide (Microzide) 12.5 mg PO DAILY [facility] Last Admin: 08/01/17 10:53 Dose: 12.5 mg Isosorbide Mononitrate (Imdur) 30 mg PO DAILY [facility] Last Admin: 08/01/17 10:53 Dose: 30 mg Levothyroxine Sodium (Synthroid) 25 mcg PO DAILY@0630 [facility] Last Admin: 08/02/17 05:36 Dose: 25 mcg Mirtazapine (Remeron) 7.5 mg PO HS [facility] Last Admin: 08/01/17 22:11 Dose: 7.5 mg Morphine Sulfate (Morphine) 2 mg IVP Q4 PRN PRN Reason: Pain, moderate (4-7) Last Admin: 08/02/17 11:49 Dose: 2 mg Rosuvastatin Calcium (Crestor) 20 mg PO HS [facility] Last Admin: 08/01/17 22:12 Dose: 20 mg Tamsulosin HCl (Flomax) 0.4 mg PO DAILY [facility] Last Admin: 08/01/17 10:53 Dose: 0.4 mg Tramadol HCl (Ultram) 50 mg PO TID PRN PRN Reason: Pain, moderate (4-7) Last Admin: 08/02/17 03:29 Dose: 50 mg Trazodone HCl (Desyrel) 50 mg PO HS PRN PRN Reason: Insomnia - Labs Labs: 08/02/17 08:09 08/02/17 08:09 PT 12.6 SECONDS (9.7-12.2) H 08/01/17 07:32 INR 1.1 08/01/17 07:32 APTT 41 SECONDS (21-34) H D 08/01/17 07:32
--- NOTE | 2017-08-02 15:26 | CP.PCM.PN ---
Subjective - Date & Time of Evaluation Date of Evaluation: 08/02/17 Time of Evaluation: 09:50 - Subjective Subjective: PGY2 medicine progress note for Dr. Glez: Patient seen and examined. Patient with pain in legs but is glad he does not need surgery. Patient to have cath today. Patient denies other complaints at this time. Objective - Vital Signs/Intake and Output Vital Signs (last 24 hours): Temp Pulse Resp BP Pulse Ox 97.7 F 62 20 128/78 98 08/02/17 11:30 08/02/17 11:30 08/02/17 11:30 08/02/17 11:30 08/02/17 11:30 Intake and Output: 08/02/17 08/02/17 06:59 18:59 Intake Total 720 480 Output Total 1850 800 Balance -1130 -320 - Medications Medications: Current Medications Amiodarone HCl (Cordarone) 200 mg PO DAILY [facility] Last Admin: 08/01/17 12:58 Dose: Not Given Aspirin (Aspirin Chewable) 81 mg PO DAILY [facility] Last Admin: 08/02/17 13:36 Dose: 81 mg Diltiazem HCl (Cardizem) 30 mg PO QID [facility] Last Admin: 08/02/17 13:37 Dose: Not Given Divalproex Sodium (Depakote Sprinkles) 125 mg PO BID [facility] Last Admin: 08/02/17 10:44 Dose: Not Given Docusate Sodium (Colace) 100 mg PO TID [facility] Last Admin: 08/02/17 13:36 Dose: 100 mg Efavirenz/Emtricitabine/Tenofovir (Atripla 600 Mg-200 Mg-300 Mg) 1 tab PO HS [facility] Last Admin: 08/01/17 22:11 Dose: 1 tab Famotidine (Pepcid) 20 mg PO DAILY [facility] Last Admin: 08/02/17 13:36 Dose: 20 mg Ferrous Sulfate (Feosol) 325 mg PO DAILY [facility] Last Admin: 08/02/17 13:37 Dose: 325 mg Fluoxetine HCl (Prozac) 40 mg PO DAILY [facility] Last Admin: 08/02/17 13:35 Dose: 40 mg Gabapentin (Neurontin) 100 mg PO TID [facility] Last Admin: 08/02/17 13:35 Dose: 100 mg Heparin Sodium (Porcine) (Heparin) 5,000 units SC Q8 [facility] Last Admin: 08/02/17 13:42 Dose: 5,000 units Hydrochlorothiazide (Microzide) 12.5 mg PO DAILY [facility] Last Admin: 08/02/17 13:36 Dose: 12.5 mg Isosorbide Mononitrate (Imdur) 30 mg PO DAILY [facility] Last Admin: 08/02/17 13:35 Dose: 30 mg Levothyroxine Sodium (Synthroid) 25 mcg PO DAILY@0630 [facility] Last Admin: 08/02/17 05:36 Dose: 25 mcg Mirtazapine (Remeron) 7.5 mg PO [facility] Last Admin: 08/01/17 22:11 Dose: 7.5 mg Morphine Sulfate (Morphine) 2 mg IVP Q4 PRN PRN Reason: Pain, moderate (4-7) Last Admin: 08/02/17 11:49 Dose: 2 mg Rosuvastatin Calcium (Crestor) 20 mg PO [facility] Last Admin: 08/01/17 22:12 Dose: 20 mg Tamsulosin HCl (Flomax) 0.4 mg PO DAILY [facility] Last Admin: 08/02/17 13:35 Dose: 0.4 mg Tramadol HCl (Ultram) 50 mg PO TID PRN PRN Reason: Pain, moderate (4-7) Last Admin: 08/02/17 03:29 Dose: 50 mg Trazodone HCl (Desyrel) 50 mg PO HS PRN PRN Reason: Insomnia - Labs Labs: 08/02/17 08:09 08/02/17 08:09 PT 12.6 SECONDS (9.7-12.2) H 08/01/17 07:32 INR 1.1 08/01/17 07:32 APTT 41 SECONDS (21-34) H D 08/01/17 07:32 - Constitutional Appears: Non-toxic, No Acute Distress - Head Exam Head Exam: ATRAUMATIC, NORMOCEPHALIC - Eye Exam Eye Exam: EOMI - ENT Exam ENT Exam: Mucous Membranes Moist - Respiratory Exam Respiratory Exam: Clear to Ausculation Bilateral, NORMAL BREATHING PATTERN - Cardiovascular Exam Cardiovascular Exam: +S1, +S2 - GI/Abdominal Exam GI & Abdominal Exam: Soft, Normal Bowel Sounds. absent: Tenderness - Extremities Exam Extremities Exam: Normal Inspection, Tenderness (b/l lower extremities). absent : Pedal Edema - Neurological Exam Neurological Exam: Alert, Awake - Psychiatric Exam Psychiatric exam: Normal Affect - Skin Skin Exam: Dry, Warm Assessment and Plan - Assessment and Plan (Free Text) Assessment: PVD (peripheral vascular disease) with claudication 08/02: Per Dr. Anguiano- JOSÉ MANUEL > 0.6, should not cause leg pain except on severe exertion, no plans for bypass at this time Patient had cardiac catheterization with Dr. Atkins today which did not show significant CAD. Recommendations made for medical therapy. 08/01: patient s/p nuclear stress test- results pending. F/U Cardiology recs for bypass 07/31: Pre-op preparation for tentative fem-pop bypass . f/u with Cardiology recs. EKG - sinus marissa Vascular surgery consult, Dr. 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 Atkins, f/u recs pre-op eval Crestor 20 mg PO HS [facility] Ultram 50 mg PO TID PRN Hypothyroidism TSH 13. 60 started synthroid 25mcg BPH Continue home meds Flomax) 0.4 mg PO DAILY [facility] HIV Continue home meds Efavirenz/Emtricitabine/Tenofovir (Atripla 600 Mg-200 Mg-300 Mg) 1 tab PO HS [facility] HTN BP 107/66 on admission Continue home meds Diltiazem HCl (Cardizem) 30 mg PO QID [facility] - hold for HR <65bpm HCTZ 12.5 mg PO DAILY [facility] Imdur 30 mg PO DAILY [facility] Aspirin (Aspirin Chewable) 81 mg PO DAILY [facility] Depression Depakote Sprinkles 125 mg PO BID [facility] Prozac 40 mg PO DAILY [facility] Trazodone 50 mg PO HS PRN Remeron 7.5 mg PO HS [facility] Hx Anemia Continue home meds Feosol 325 mg PO DAILY [facility] Prophylaxis SCDs Heparin 5000u SC Q8H Colace 100 mg PO TID [facility] Pepcid 20 mg PO DAILY [facility] All medical management as per Dr. Glez
--- NOTE | 2017-08-02 18:30 | CARD ---
APPROVED REPORT EKG Measurement Heart [id number] <Conclusion> Sinus bradycardia Nonspecific T wave abnormality Abnormal ECG
[2017-08-02] MEDS: Efavirenz/Emtricitabine/Teno 1 TAB PO SCH (22:20)
[2017-08-03] MEDS: Levothyroxine 25 MCG TAB PO SCH (06:02)
[2017-08-03 07:22] VITALS: RESP 20
[2017-08-03 08:04] LABS: BASO # 0.1 K/uL (0.0-0.2); BASO % 1.1 % (0.0-2.0); EOS # 0.5 K/uL (0.0-0.7); HEMATOCRIT 39.2 % (35.0-51.0); LYMPH # 1.5 K/uL (1.0-4.3); LYMPH % 21.1 % (20.0-40.0); MEAN CELL VOLUME 90.5 fL (80.0-94.0); MEAN CORPUSCULAR HEMOGLOBIN 30.2 pg (27.0-31.0); MEAN CORPUSCULAR HGB CONC 33.4 g/dL (33.0-37.0); MEAN PLATELET VOLUME 9.7 fL (7.2-11.7); MONO # 0.8 K/uL (0.0-0.8); MONO % 11.2 % (0.0-10.0); NRBC % 0.1 % (0.0-2.0); RED CELL DISTRIBUTION WIDTH 13.6 % (11.5-14.5); WHITE BLOOD COUNT 7.2 K/uL (4.8-10.8)
[2017-08-03 08:15] LABS: CHLORIDE 109 mmol/L (98-107); POTASSIUM 3.7 mmol/L (3.6-5.2); SODIUM 142 mmol/L (132-148)
[2017-08-03 08:17] LABS: ALB/GLOB RATIO 0.9 (1.0-2.1); ALKALINE PHOSPHATASE 120 U/L (38-126); AST/SGOT 75 U/L (17-59); BILIRUBIN,TOTAL 0.5 mg/dL (0.2-1.3); BLOOD UREA NITROGEN 20 mg/dL (9-20); CARBON DIOXIDE 22 mmol/L (22-30); GFR AFRICAN-AMERICAN > 60; GLUCOSE,RANDOM 104 mg/dL (75-110); PHOSPHOROUS 4.4 mg/dL (2.5-4.5)
[2017-08-03 08:18] LABS: ALT/SGPT 84 U/L (21-72); CALCIUM 8.5 mg/dl (8.6-10.4); MAGNESIUM 1.7 mg/dL (1.6-2.3)
[2017-08-03] MEDS: Divalproex 125 mg Sprinkle Capsule PO SCH (09:04)
--- NOTE | 2017-08-03 15:56 | CP.PCM.PN ---
Subjective - Date & Time of Evaluation Date of Evaluation: 08/03/17 Time of Evaluation: 07:50 - Subjective Subjective: PGY2 progress note for Dr. Glez: Patient seen and examined. Patient states he feels well but that he still has leg pain that is helped by morphine. Patient reports good appetite and good sleep. Objective - Vital Signs/Intake and Output Vital Signs (last 24 hours): Temp Pulse Resp BP Pulse Ox 97.7 F 70 20 100/62 95 08/03/17 13:05 08/03/17 13:05 08/03/17 13:05 08/03/17 13:05 08/03/17 13:05 - Medications Medications: Current Medications Amiodarone HCl (Cordarone) 200 mg PO DAILY [facility] Last Admin: 08/01/17 12:58 Dose: Not Given Aspirin (Aspirin Chewable) 81 mg PO DAILY [facility] Last Admin: 08/03/17 09:05 Dose: 81 mg Diltiazem HCl (Cardizem) 30 mg PO QID [facility] Last Admin: 08/03/17 13:06 Dose: Not Given Divalproex Sodium (Depakote Sprinkles) 125 mg PO BID [facility] Last Admin: 08/03/17 09:04 Dose: 125 mg Docusate Sodium (Colace) 100 mg PO TID [facility] Last Admin: 08/03/17 13:06 Dose: 100 mg Efavirenz/Emtricitabine/Tenofovir (Atripla 600 Mg-200 Mg-300 Mg) 1 tab PO HS [facility] Last Admin: 08/02/17 22:20 Dose: 1 tab Famotidine (Pepcid) 20 mg PO DAILY [facility] Last Admin: 08/03/17 09:05 Dose: 20 mg Ferrous Sulfate (Feosol) 325 mg PO DAILY [facility] Last Admin: 08/03/17 09:04 Dose: 325 mg Fluoxetine HCl (Prozac) 40 mg PO DAILY [facility] Last Admin: 08/03/17 09:04 Dose: 40 mg Gabapentin (Neurontin) 100 mg PO TID [facility] Last Admin: 08/03/17 13:06 Dose: 100 mg Heparin Sodium (Porcine) (Heparin) 5,000 units SC Q8 [facility] Last Admin: 08/03/17 13:06 Dose: Not Given Hydrochlorothiazide (Microzide) 12.5 mg PO DAILY [facility] Last Admin: 09/08/17 09:05 Dose: 12.5 mg Isosorbide Mononitrate (Imdur) 30 mg PO DAILY [facility] Last Admin: 08/03/17 09:05 Dose: 30 mg Levothyroxine Sodium (Synthroid) 25 mcg PO DAILY@0630 [facility] Last Admin: 08/03/17 06:02 Dose: 25 mcg Mirtazapine (Remeron) 7.5 mg PO HS [facility] Last Admin: 08/02/17 22:20 Dose: 7.5 mg Morphine Sulfate (Morphine Extended Release Tab) 15 mg PO Q12 [facility] Morphine Sulfate (Morphine) 1 mg IVP Q4 PRN PRN Reason: Pain, severe (8-10) Rosuvastatin Calcium (Crestor) 20 mg PO HS [facility] Last Admin: 08/02/17 22:20 Dose: 20 mg Tamsulosin HCl (Flomax) 0.4 mg PO DAILY [facility] Last Admin: 08/03/17 09:05 Dose: 0.4 mg Tramadol HCl (Ultram) 50 mg PO TID PRN PRN Reason: Pain, moderate (4-7) Last Admin: 08/02/17 17:10 Dose: 50 mg Trazodone HCl (Desyrel) 50 mg PO HS PRN PRN Reason: Insomnia Last Admin: 08/02/17 22:19 Dose: 50 mg - Labs Labs: 08/03/17 07:52 08/03/17 07:52 PT 12.6 SECONDS (9.7-12.2) H 08/01/17 07:32 INR 1.1 08/01/17 07:32 APTT 41 SECONDS (21-34) H D 08/01/17 07:32 - Constitutional Appears: Non-toxic, No Acute Distress - Head Exam Head Exam: ATRAUMATIC, NORMOCEPHALIC - Eye Exam Eye Exam: EOMI - ENT Exam ENT Exam: Mucous Membranes Moist - Respiratory Exam Respiratory Exam: Clear to Ausculation Bilateral, NORMAL BREATHING PATTERN - Cardiovascular Exam Cardiovascular Exam: +S1, +S2 - GI/Abdominal Exam GI & Abdominal Exam: Soft, Normal Bowel Sounds. absent: Tenderness - Extremities Exam Extremities Exam: Normal Inspection, Tenderness (b/l lower extremities). absent : Calf Tenderness - Neurological Exam Neurological Exam: Alert, Awake - Psychiatric Exam Psychiatric exam: Normal Affect - Skin Skin Exam: Dry, Warm Assessment and Plan - Assessment and Plan (Free Text) Assessment: PVD (peripheral vascular disease) with claudication 08/03: no surgical intervention planned. patient to continue medical therapy. patient cleared for discharge 08/02: Per Dr. Anguiano- JOSÉ MANUEL > 0.6, should not cause leg pain except on severe exertion, no plans for bypass at this time Patient had cardiac catheterization with Dr. Atkins today which did not show significant CAD. Recommendations made for medical therapy. 08/01: patient s/p nuclear stress test- results pending. F/U Cardiology recs for bypass 07/31: Pre-op preparation for tentative fem-pop bypass . f/u with Cardiology recs. EKG - sinus marissa Vascular surgery consult, Dr. 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 Atkins, f/u recs pre-op eval Crestor 20 mg PO HS [facility] Ultram 50 mg PO TID PRN, morphine 1mg q4h prn pain- will start ms contin 15mg q12h on discharge Hypothyroidism TSH 13. 60 started synthroid 25mcg BPH Continue home meds Flomax) 0.4 mg PO DAILY [facility] HIV Continue home meds Efavirenz/Emtricitabine/Tenofovir (Atripla 600 Mg-200 Mg-300 Mg) 1 tab PO HS [facility] HTN Continue home meds Diltiazem HCl (Cardizem) 30 mg PO QID [facility] - hold for HR <65bpm will change to Cardizem 120CD for discharge will restart amiodarone 200mg daily on discharge per Dr. Atkins HCTZ 12.5 mg PO DAILY [facility] Imdur 30 mg PO DAILY [facility] Aspirin (Aspirin Chewable) 81 mg PO DAILY [facility] Depression Depakote Sprinkles 125 mg PO BID [facility] Prozac 40 mg PO DAILY [facility] Trazodone 50 mg PO HS PRN Remeron 7.5 mg PO HS [facility] Hx Anemia Continue home meds Feosol 325 mg PO DAILY [facility] Prophylaxis SCDs Heparin 5000u SC Q8H Colace 100 mg PO TID [facility] Pepcid 20 mg PO DAILY [facility] All medical management as per Dr. Elamir Patient is stable for discharge back to nursing facility per Dr. Glez. Patient is to follow up with Dr. Glez within a week of discharge. Patient is to return to the ED if his symptoms worsen or reoccur.
[2017-08-03 16:09] VITALS: BP 121/69; PULSE 76; TEMP 98.1; O2SAT 94
[2017-08-03] MEDS ORDERED: Morphine 15 mg SR Tab PO SCH (22:00)
--- NOTE | 2017-08-14 19:23 | CARD ---
APPROVED REPORT Protocol: LEXISCAN Test Type: LEXISCAN STRESS Test Indications: CP PVD Target HR: 152 bpm Resting ECG: normal Resting Heart Rate: 50 bpm Resting Blood Pressure: /mmHg submaximum (85%): 129 bpm TEST SUMMARY [id number].21:[id number]/.0. INFUSIONDOSE 100:300.00.01.052/.0. [id number]. PROCEDURE Pharmacologic stress testing was performed using 0.4mg per 5ml of regadenoson given intravenously over 7-10 seconds. Reversal agent aminophyline 125 mg, given intravenously for Headache. POST EXERCISE Reason for Termination: Protocol Completed Target HR: No Max HR: 52 bpm 50% of Maximum Predicted HR: 152 bpm Exercise duration: 00:30 min:sec, 0 Stage Exercise capacity: 1.0METs Max Blood Pressure: 170/80mmHg Blood Pressure response to exercise: normal resting BP - appropriate response Heart Rate response to exercise: appropriate Chest Pain: No, none Angina index: 0 Arrhythmia: No, none ST Change: No, none Deviation: 0 mm INTERPRETATION Stress EKG Conclusion: AWAIT NUCLEAR IMAGES EXAM: Myocardial Perfusion STRESS/REST Imaging Protocol The imaging protocol used to acquire images was Stress Tc-99m/rest Tc-99m 1 day Rest Spect myocardial perfusion imaging was performed in supine position 45 minutes following the injection of 32.6 mCi of Tc-99 Myoview. Gated Stress Spect was performed 45 minutes after intravenous 13.2 mCi Tc-99 Myoview injection. The images were gated to evaluate regional wall motion and calculate ventricular ejection fraction.Images were reconstructed using backfilter projection method in short horizontal and verticle long axis. Spect slices were generated. RESTING DATA WXG387.05aqRP6.00L/min ESV61.00mlMyocardial Mpya254.00g Av. Heart Rate57.00bpm EF53.00% STRESS DATA ULU283.94pkZU8.60L/min ESV68.00mlMyocardial Zysx282.00g EF54.00% Regional WT score at stress:1.00 Regional WM score at stress:0.00 Summed WT score at stress:22.00 Av. Heart Rate58.00bpmSummed WM score at stress:12.00 LV Perf. Quant 17 Seg. SSS7.00 17 Seg. SRS8.00 17 Seg. SDS4.00 Stress Defect Extent (% LAD)26.90Rest Defect Extent (% LAD)0.00Rev. Defect Extent (% LAD)26.30 Stress Defect Extent (% LCX)25.00Rest Defect Extent (% LCX)63.80Rev. Defect Extent (% LCX)0.00 Stress Defect Extent (% RCA)0.00Rest Defect Extent (% RCA)0.00Rev. Defect Extent (% RCA)0.00 Stress Defect Extent (% ELSA)17.80Rest Defect Extent (% ELSA)13.30Rev. Defect Extent (% ELSA)9.80 Other Information Quality:Excellent IMPRESSION Abnormal Myocardial Perfusion exercise stress study Global LV Function: Normal Stress Test Summary: Nondiagnostic LV Perfusion Summary: Abnormal Left Ventricle LV Size/Shape: The left ventricle is normal size. LV Thickness: There is normal left ventricular wall thickness. LV Function:Left ventricle systolic function is normal. The Ejection Fraction is 55-60%. Regional Wall Motion:No regional wall motion abnormalities noted. Metabolism/Perfusion Reversible/Irreversible: There is a medium reversible perfusion/metabolism defect in the Apical anterior wall. Conclusion 1. Reversible anterior apical reversible ischemia of the left ventricle. 2. Normal left ventricular function.
--- NOTE | 2017-08-16 11:41 | CATH ---
APPROVED REPORT Procedure(s) performed: Left Heart Catheterization Left Ventriculogram Selective Right and Left Coronary Angiography HISTORY INDICATION The indication(s) include : positive stress test. CASE TECHNIQUE difficulty. Coronary angiography was performed using coronary diagnostic catheters. The left coronary system was accessed and visualized with a Diagnostic catheter. The right coronary system was accessed and visualized with a Diagnostic catheter. The left ventricle was accessed and visualized with a Diagnostic catheter. Left ventricular/Aortic Valve gradient assessed on pullback. The patient tolerated the procedure well and there were no complications associated with the procedure. Vessel Analysis The patient's coronary anatomy is right dominant. The left main coronary artery is a medium size vessel with intimal irregularities. The left main bifurcates to the left anterior descending and circumflex. The left anterior descending artery is a medium size vessel with intimal irregularities. The circumflex artery is a medium size vessel with intimal irregularities. The right coronary artery is a medium size vessel with intimal irregularities. Left Ventricle The left ventricular ejection fraction is estimated to be 55%. Conclusion No signifcant CAD. Normal left ventricular function. Recommendations Aggressive Medical Therapy
== END 2017-08-03 16:30 | DRG 287 ==
LOC: C.ER 08:54 → C.9E 09:33 → C.5T 12:05 → C.5S 08-01 09:07
PROVIDERS: ADMIT Internal Medicine Pulmonary Disease; ATTEND Internal Medicine Pulmonary Disease
PROC: 4A023N7 Measurement of Cardiac Sampling and Pressure, Left Heart, Percutaneous Approach (ICD-10-PCS; principal; 2017-08-02)
PROC: B2151ZZ Fluoroscopy of Left Heart using Low Osmolar Contrast (ICD-10-PCS; 2017-08-02)
PROC: B2111ZZ Fluoroscopy of Multiple Coronary Arteries using Low Osmolar Contrast (ICD-10-PCS; 2017-08-02)
DX: I70.213 Atherosclerosis of native arteries of extremities with intermittent claudication, bilateral legs (principal); I10 Essential (primary) hypertension; I25.119 Atherosclerotic heart disease of native coronary artery with unspecified angina pectoris; Z21 Asymptomatic human immunodeficiency virus [HIV] infection status; E03.9 Hypothyroidism, unspecified; F32.9 Major depressive disorder, single episode, unspecified; E78.5 Hyperlipidemia, unspecified; E78.00 Pure hypercholesterolemia, unspecified; N40.0 Benign prostatic hyperplasia without lower urinary tract symptoms; I25.2 Old myocardial infarction; Z79.899 Other long term (current) drug therapy; Z87.891 Personal history of nicotine dependence

== ENCOUNTER 2017-08-16 12:48 | Inpatient (IN) | payer MEDICARE, MEDICAID ==
[2017-08-16 12:48] VITALS: PULSE 160
[2017-08-16 12:53] VITALS: BMI 30.5
[2017-08-16 13:34] LABS: BASO # 0.1 K/uL (0.0-0.2); BASO % 1.1 % (0.0-2.0); EOS # 0.7 K/uL (0.0-0.7); EOS % 13.4 % (0.0-4.0); HEMATOCRIT 38.6 % (35.0-51.0); LYMPH # 1.7 K/uL (1.0-4.3); LYMPH % 31.8 % (20.0-40.0); MEAN CELL VOLUME 90.8 fL (80.0-94.0); MEAN CORPUSCULAR HEMOGLOBIN 30.4 pg (27.0-31.0); MEAN CORPUSCULAR HGB CONC 33.5 g/dL (33.0-37.0); MEAN PLATELET VOLUME 9.6 fL (7.2-11.7); MONO # 0.6 K/uL (0.0-0.8); RED CELL DISTRIBUTION WIDTH 13.9 % (11.5-14.5); WHITE BLOOD COUNT 5.2 K/uL (4.8-10.8)
[2017-08-16 13:41] LABS: CHLORIDE 104 mmol/L (98-107)
[2017-08-16 13:42] LABS: POTASSIUM 3.9 mmol/L (3.6-5.2); SODIUM 141 mmol/L (132-148)
[2017-08-16 13:44] LABS: CARBON DIOXIDE 24 mmol/L (22-30); CHOLESTEROL 124 mg/dL (0-199); GFR AFRICAN-AMERICAN > 60
[2017-08-16 13:45] LABS: ALB/GLOB RATIO 0.9 (1.0-2.1); ALKALINE PHOSPHATASE 84 U/L (38-126); ALT/SGPT 75 U/L (21-72); AST/SGOT 77 U/L (17-59); BILIRUBIN,TOTAL 0.4 mg/dL (0.2-1.3); BLOOD UREA NITROGEN 25 mg/dL (9-20); CALCIUM 8.6 mg/dl (8.6-10.4); GLUCOSE,RANDOM 90 mg/dL (75-110); TOTAL PROTEIN 7.9 g/dL (6.3-8.3)
--- NOTE | 2017-08-16 13:55 | RAD ---
HISTORY: chest pain/SOB COMPARISON: Chest x-ray performed 07/31/17 TECHNIQUE: Chest, one view. FINDINGS: Examination limited by habitus and hypoinflation. LUNGS: Poor inspiration with low lung volumes, mild crowded bronchovascular markings and mild bibasilar atelectasis. Please note that chest x-ray has limited sensitivity for the detection of pulmonary masses. PLEURA: No significant pleural effusion identified. No definite pneumothorax . CARDIOVASCULAR: Borderline cardiomegaly. OSSEOUS STRUCTURES: No acute osseous abnormality identified. VISUALIZED UPPER ABDOMEN: Unremarkable. OTHER FINDINGS: None. IMPRESSION: Poor inspiration with low lung volumes, mild crowded bronchovascular markings and mild bibasilar atelectasis. Borderline cardiomegaly.
--- NOTE | 2017-08-16 14:09 | C.PDOC ---
History Of Present Illness Pt c/o chest pain radiating to left arm. Time Seen by Provider: 08/16/17 13:09 Chief Complaint (Nursing): Chest Pain History Per: Patient, Other ([facility] transfer papers) Onset/Duration Of Symptoms: Days (1), Intermittent Episodes Current Symptoms Are (Timing): Still Present Severity: Moderate Associated Symptoms: Dyspnea Modifying Factors: Other Indicated Below Nitro Therapy Administered: 1, Per Own Supply, Partial Relief Additional History Per: Custodial, Prior Records Past Medical History Reviewed: Historical Data, Nursing Documentation, Vital Signs Vital Signs: Last Vital Signs Temp 97.5 F L 08/16/17 12:52 Pulse 63 08/16/17 13:32 Resp 25 H 08/16/17 13:32 BP 106/67 08/16/17 13:32 Pulse Ox 98 08/16/17 13:32 - Medical History PMH: Anemia, Benign Prostatic Hyperplasia, Depression, HIV, HTN, Hypercholesterolemia, Peripheral Edema - [facility] Procedures BYPASS L FEM ART TO POPLIT ART WITH AUTOL VN, OPEN APPROACH (05/31/16) FLUOROSCOPY OF LEFT HEART USING LOW OSMOLAR CONTRAST (07/31/17) FLUOROSCOPY OF MULT COR ART USING L OSM CONTRAST (07/31/17) MEASURE OF CARDIAC SAMPL & PRESSURE, L HEART, PERC APPROACH (07/31/17) OCCLUSION OF LEFT POPLITEAL ARTERY, OPEN APPROACH (05/31/16) REPAIR RIGHT FEMORAL ARTERY, OPEN APPROACH (03/31/16) TRANSFUSE NONAUT RED BLOOD CELLS IN PERIPH VEIN, PERC (05/31/16) Family History: States: Unknown Family Hx - Social History Hx Alcohol Use: No Hx Substance Use: No - Immunization History Hx Tetanus Toxoid Vaccination: No Hx Influenza Vaccination: No Hx Pneumococcal Vaccination: Yes Review Of Systems Except As Marked, All Systems Reviewed And Found Negative. Constitutional: Negative for: Fever Cardiovascular: Positive for: Chest Pain Respiratory: Positive for: Shortness of Breath. Negative for: Hemoptysis Gastrointestinal: Negative for: Nausea, Vomiting Musculoskeletal: Negative for: Neck Pain, Back Pain Skin: Negative for: Rash Neurological: Negative for: Weakness Physical Exam - Physical Exam Appears: No Acute Distress, Chronically Ill Skin: Normal Color, Warm, Dry Head: Atraumatic, Normacephalic Eye(s): bilateral: PERRL, EOMI Neck: Normal ROM, Supple Cardiovascular: Rhythm Regular Respiratory: Normal Breath Sounds, No Accessory Muscle Use Gastrointestinal/Abdominal: Soft, No Tenderness Back: No CVA Tenderness Extremity: Normal ROM Neurological/Psych: Oriented x3, Normal Motor, Normal Sensation ED Course And Treatment - Laboratory Results Result Diagrams: 08/16/17 13:31 08/16/17 13:31 Lab Interpretation: No Acute Changes ECG: Interpreted By Me, Viewed By Me ECG Rhythm: Sinus Rhythm, Nonspecific Changes Rate From EC O2 Sat by Pulse Oximetry: 98 Pulse Ox Interpretation: Normal - Radiology CXR: Viewed By Me, Read By Radiologist CXR Interpretation: Yes: No Acute Disease Progress - Interventions Interventions:: Observation, Oxygen - Medications Administered Oral: Aspirin - Data Reviewed Data Reviewed: Lab, Diagnostic imaging, EKG, Old records - Patient Status Patient status: Mostly improved - Continuity of Care Discussed patient case with:: Patient, ED Nurse, PMD Disposition Discussed With : George Glez Comment: He accepted pt on his service. Doctor Will See Patient In The: Hospital Counseled Patient/Family Regarding: Studies Performed, Diagnosis - Disposition Disposition: HOSPITALIZED Disposition Time: 14:11 Condition: FAIR - Clinical Impression Clinical Impression: Chest pain
[2017-08-16] MEDS ORDERED: Magnesium Hydroxide Susp 30 ml UD PO PRN (23:38)
[2017-08-17 08:32] VITALS: RESP 20
[2017-08-17] MEDS ORDERED: TURMERIC RT XT PO SCH (10:00)
[2017-08-17] MEDS ORDERED: AMINO ACIDS PO SCH (10:00)
[2017-08-17] MEDS ORDERED: MAG OXIDE PO SCH (10:00)
[2017-08-17] MEDS ORDERED: D3 PO SCH (10:00)
[2017-08-17] MEDS ORDERED: PROTEIN HYDROLYS PO SCH (10:00)
[2017-08-17] MEDS: Enoxaparin 40 mg Syringe SC SCH (10:38)
[2017-08-17] MEDS: Lidocaine 5% Patch TD SCH (10:39)
[2017-08-17] MEDS: diltiaZEM 120 mg/24 Hours CD Cap PO SCH (10:41)
[2017-08-17] MEDS: Tmp-Smz 400 mg-80 mg SS Tab PO SCH (10:41)
[2017-08-17] MEDS: Divalproex 125 mg Sprinkle Capsule PO SCH ×2 (10:42→19:33)
--- NOTE | 2017-08-17 14:19 | CP.PCM.PN ---
Subjective - Date & Time of Evaluation Date of Evaluation: 08/17/17 Time of Evaluation: 07:55 - Subjective Subjective: PGY2 medicine progress note for Dr. Glez Patient seen and examined. Patient is a 67 year old male with PMHx of PVD, BPH, depression, HIV, HTN, HLD, MS who presents to the ED with complaint of chest pain. Patient states the pain began two days ago. He describes the pain as sharp and located in the left side of his chest with radiation down the left arm. Patient states the pain went away, but then returned yesterday. Patient states the pain was relieved with two sublingual nitro tabs. Patient states at the time of the pain yesterday he felt short of breath as well but denies nausea and diaphoresis. Patient states that he currently does not feel the same type of chest pain, but states he feels a tingling sensation in chest and left arm. Patient also denies shortness of breath currently. PMHx: PVD, BPH, Depression, HIV, HTN, HLD, Peripheral Edema, 3 prior MIs PSHx: Right femoral artery repair (03/2016); Left femoral artery bypass (05/2016) , Cardiac cath - clean vessels per pt. (via R groin) Meds: see EMR Allergies: NKDA FamHx: Mom of CA at 29yo (unknown type); Dad in 80's (unknown cause) SocHx: Tobacco, EtOH, and heroin use socially (states has not used in several months). Lives in jail. On disability. Objective - Vital Signs/Intake and Output Vital Signs (last 24 hours): Temp Pulse Resp BP Pulse Ox 97.5 F L 51 L 20 117/67 96 08/17/17 08:30 08/17/17 08:30 08/17/17 08:30 08/17/17 08:30 08/17/17 08:30 - Medications Medications: Current Medications Acetaminophen (Tylenol 325mg Tab) 650 mg PO Q4H PRN PRN Reason: Pain, Mild (1-3) Amiodarone HCl (Cordarone) 200 mg PO DAILY [facility] Last Admin: 08/17/17 10:41 Dose: Not Given Aspirin (Aspirin Chewable) 81 mg PO DAILY [facility] Last Admin: 08/17/17 10:38 Dose: 81 mg Diltiazem HCl (Cardizem Cd) 120 mg PO DAILY [facility] Last Admin: 08/17/17 10:41 Dose: Not Given Divalproex Sodium (Depakote Sprinkles) 125 mg PO BID [facility] Last Admin: 08/17/17 10:42 Dose: 125 mg Docusate Sodium (Colace) 100 mg PO TID [facility] Last Admin: 08/17/17 13:35 Dose: 100 mg Efavirenz/Emtricitabine/Tenofovir (Atripla 600 Mg-200 Mg-300 Mg) 1 tab PO HS [facility] Enoxaparin Sodium (Lovenox) 40 mg SC DAILY [facility] Last Admin: 08/17/17 10:38 Dose: 40 mg Famotidine (Pepcid) 20 mg PO DAILY [facility] Last Admin: 08/17/17 10:39 Dose: 20 mg Fentanyl (Duragesic) 1 patch TD Q72H [facility] Last Admin: 08/17/17 13:36 Dose: 1 patch Ferrous Sulfate (Feosol) 325 mg PO DAILY [facility] Last Admin: 08/17/17 10:39 Dose: 325 mg Fluoxetine HCl (Prozac) 40 mg PO DAILY [facility] Last Admin: 08/17/17 10:38 Dose: 40 mg Gabapentin (Neurontin) 100 mg PO TID [facility] Last Admin: 08/17/17 13:34 Dose: 100 mg Hydrochlorothiazide (Microzide) 12.5 mg PO DAILY [facility] Last Admin: 08/17/17 10:38 Dose: 12.5 mg Isosorbide Mononitrate (Imdur Er) 30 mg PO DAILY [facility] Last Admin: 08/17/17 10:38 Dose: 30 mg Lidocaine (Lidoderm) 1 ea TD DAILY [facility] Last Admin: 08/17/17 10:39 Dose: 1 ea Magnesium Hydroxide (Milk Of Magnesia) 30 ml PO HS PRN PRN Reason: Constipation Mirtazapine (Remeron) 7.5 mg PO HS [facility] Nitroglycerin (Nitrostat Sl Tab) 0.4 mg SL Q5MIN [facility] Rosuvastatin Calcium (Crestor) 20 mg PO HS [facility] Tamsulosin HCl (Flomax) 0.4 mg PO DAILY [facility] Last Admin: 08/17/17 10:39 Dose: 0.4 mg Temazepam (Restoril) 15 mg PO HS PRN PRN Reason: Insomnia Tramadol HCl (Ultram) 50 mg PO TID PRN PRN Reason: Pain, moderate (4-7) Last Admin: 08/17/17 13:36 Dose: 50 mg Trazodone HCl (Desyrel) 50 mg PO HS PRN PRN Reason: Insomnia Trimethoprim/Sulfamethoxazole (Bactrim Ss Tab) 1 tab PO DAILY [facility] Last Admin: 08/17/17 10:41 Dose: 1 tab - Labs Labs: 08/16/17 13:31 08/16/17 13:31 - Constitutional Appears: Non-toxic, No Acute Distress - Head Exam Head Exam: ATRAUMATIC, NORMOCEPHALIC - Eye Exam Eye Exam: EOMI - ENT Exam ENT Exam: Mucous Membranes Moist - Respiratory Exam Respiratory Exam: Clear to Ausculation Bilateral, NORMAL BREATHING PATTERN - Cardiovascular Exam Cardiovascular Exam: +S1, +S2 - GI/Abdominal Exam GI & Abdominal Exam: Soft, Normal Bowel Sounds. absent: Tenderness - Extremities Exam Extremities Exam: Tenderness (right hip). absent: Pedal Edema - Neurological Exam Neurological Exam: Alert, Awake - Psychiatric Exam Psychiatric exam: Normal Affect - Skin Skin Exam: Dry, Warm Assessment and Plan - Assessment and Plan (Free Text) Assessment: Chest pain, r/o ACS FCO negative x [address] Atkins, cardiology, consulted- help appreciated PVD Crestor 20 mg PO HS [facility] Ultram 50 mg PO TID PRN BPH Continue home meds Flomax 0.4 mg PO DAILY [facility] HIV Continue home meds Efavirenz/Emtricitabine/Tenofovir (Atripla 600 Mg-200 Mg-300 Mg) 1 tab PO HS [facility] continue bactrim for PCP prophylaxis gabapentin 100mg TID for neuropathy HTN Amiodarone HCl (Cordarone) 200 mg PO DAILY [facility] Diltiazem HCl (Cardizem) CD 120mg PO daily HCTZ 12.5 mg PO DAILY [facility] Imdur 30 mg PO DAILY [facility] Aspirin (Aspirin Chewable) 81 mg PO DAILY [facility] Depression Depakote Sprinkles 125 mg PO BID [facility] Prozac 40 mg PO DAILY [facility] Trazodone 50 mg PO HS PRN Remeron 7.5 mg PO HS [facility] Hx Anemia Continue home meds Feosol 325 mg PO DAILY [facility] Prophylaxis restoril 15mg PO HSprn lovenox 40mg sc daily pepcid 20mg PO daily colace 100mg PO TID milk of magnesia 30ml PO HS prn All medical management as per Dr. Glez
[2017-08-17] MEDS: Sodium Chloride Nasal 0.65% Soln (30ml) NAS PRN (17:42)
[2017-08-17] MEDS ORDERED: Efavirenz/Emtricitabine/Teno 1 TAB PO SCH (22:00)
[2017-08-18 07:24] LABS: ALB/GLOB RATIO 0.9 (1.0-2.1); ALKALINE PHOSPHATASE 117 U/L (38-126); ALT/SGPT 70 U/L (21-72); AST/SGOT 77 U/L (17-59); BILIRUBIN,TOTAL 0.3 mg/dL (0.2-1.3); BLOOD UREA NITROGEN 19 mg/dL (9-20); CALCIUM 8.3 mg/dl (8.6-10.4); CARBON DIOXIDE 26 mmol/L (22-30); CHLORIDE 102 mmol/L (98-107); GFR AFRICAN-AMERICAN > 60; GLUCOSE,RANDOM 95 mg/dL (75-110); SODIUM 136 mmol/L (132-148); TOTAL PROTEIN 6.9 g/dL (6.3-8.3)
[2017-08-18 07:30] LABS: BASO # 0.1 K/uL (0.0-0.2); BASO % 1.5 % (0.0-2.0); EOS # 0.6 K/uL (0.0-0.7); EOS % 14.3 % (0.0-4.0); HEMATOCRIT 39.2 % (35.0-51.0); LYMPH # 1.4 K/uL (1.0-4.3); LYMPH % 33.5 % (20.0-40.0); MEAN CORPUSCULAR HEMOGLOBIN 30.7 pg (27.0-31.0); MEAN CORPUSCULAR HGB CONC 33.8 g/dL (33.0-37.0); MEAN PLATELET VOLUME 9.8 fL (7.2-11.7); MONO # 0.5 K/uL (0.0-0.8); MONO % 13.1 % (0.0-10.0); NRBC % 0.2 % (0.0-2.0); RED CELL DISTRIBUTION WIDTH 13.9 % (11.5-14.5); WHITE BLOOD COUNT 4.2 K/uL (4.8-10.8)
[2017-08-18] MEDS: Enoxaparin 40 mg Syringe SC SCH (09:10)
[2017-08-18] MEDS: Sodium Chloride Nasal 0.65% Soln (30ml) NAS PRN (09:11)
[2017-08-18] MEDS: Divalproex 125 mg Sprinkle Capsule PO SCH (09:11)
[2017-08-18] MEDS: Lidocaine 5% Patch TD SCH (09:12)
[2017-08-18] MEDS: Tmp-Smz 400 mg-80 mg SS Tab PO SCH (09:12)
[2017-08-18] MEDS: diltiaZEM 120 mg/24 Hours CD Cap PO SCH (09:14)
--- NOTE | 2017-08-18 13:52 | CP.PCM.CON ---
History of Present Illness - History of Present Illness History of Present Illness: patient seen/examined. No signficant CAD on cardaic cath 2 weeks ago. CP likely not cardiac in origin. medical therapy Past Patient History - Infectious Disease Hx of Infectious Diseases: None - Past Medical History & Family History Past Medical History?: Yes - Past Social History Smoking Status: Former Smoker - CARDIAC Hx Hypercholesterolemia: Yes Hx Hypertension: Yes Hx Peripheral Edema: Yes - PULMONARY Hx Tuberculosis: No - NEUROLOGICAL Hx Seizures: No - HEENT Hx HEENT Problems: No - RENAL Hx Chronic Kidney Disease: No - ENDOCRINE/METABOLIC Hx Endocrine Disorders: No - HEMATOLOGICAL/ONCOLOGICAL Hx Anemia: Yes Hx Human Immunodeficiency Virus (HIV): Yes - INTEGUMENTARY Hx Dermatological Problems: No Other/Comment: dry skin and feet - MUSCULOSKELETAL/RHEUMATOLOGICAL Hx Falls: Yes - GASTROINTESTINAL Hx Gastrointestinal Disorders: Yes Other/Comment: CONSTIPATION - GENITOURINARY/GYNECOLOGICAL Hx Sexually Transmitted Disorders: No - PSYCHIATRIC Hx Depression: Yes Hx Substance Use: Yes (clean for year) - SURGICAL HISTORY Hx Surgeries: Yes Hx Femoral-Popliteal Bypass Graft: Yes (see below) Other/Comment: fem pop ma2015 right leg , may 2016 left leg fem pop by dr narayan - ANESTHESIA Hx Anesthesia: Yes Hx Anesthesia Reactions: No Meds Allergies/Adverse Reactions: Allergies Allergy/AdvReac Type Severity Reaction Status Date / Time No Known Allergies Allergy Verified 07/31/17 09:11 - Medications Medications: Current Medications Acetaminophen (Tylenol 325mg Tab) 650 mg PO Q4H PRN PRN Reason: Pain, Mild (1-3) Amiodarone HCl (Cordarone) 200 mg PO DAILY [facility] Last Admin: 08/18/17 09:15 Dose: Not Given Aspirin (Aspirin Chewable) 81 mg PO DAILY [facility] Last Admin: 08/18/17 09:13 Dose: 81 mg Diltiazem HCl (Cardizem Cd) 120 mg PO DAILY [facility] Last Admin: 08/18/17 09:14 Dose: Not Given Divalproex Sodium (Depakote Sprinkles) 125 mg PO BID [facility] Last Admin: 08/18/17 09:11 Dose: 125 mg Docusate Sodium (Colace) 100 mg PO TID [facility] Last Admin: 08/18/17 13:24 Dose: 100 mg Efavirenz/Emtricitabine/Tenofovir (Atripla 600 Mg-200 Mg-300 Mg) 1 tab PO HS [facility] Last Admin: 08/17/17 21:54 Dose: 1 tab Enoxaparin Sodium (Lovenox) 40 mg SC DAILY [facility] Last Admin: 08/18/17 09:10 Dose: 40 mg Famotidine (Pepcid) 20 mg PO DAILY [facility] Last Admin: 08/18/17 09:13 Dose: 20 mg Fentanyl (Duragesic) 1 patch TD Q72H [facility] Last Admin: 08/17/17 13:36 Dose: 1 patch Ferrous Sulfate (Feosol) 325 mg PO DAILY [facility] Last Admin: 08/18/17 09:13 Dose: 325 mg Fluoxetine HCl (Prozac) 40 mg PO DAILY [facility] Last Admin: 08/18/17 09:11 Dose: 40 mg Gabapentin (Neurontin) 100 mg PO TID [facility] Last Admin: 08/18/17 13:24 Dose: 100 mg Hydrochlorothiazide (Microzide) 12.5 mg PO DAILY [facility] Last Admin: 08/18/17 09:13 Dose: 12.5 mg Isosorbide Mononitrate (Imdur Er) 30 mg PO DAILY [facility] Last Admin: 08/18/17 10:50 Dose: 30 mg Lidocaine (Lidoderm) 1 ea TD DAILY [facility] Last Admin: 08/18/17 09:12 Dose: 1 ea Magnesium Hydroxide (Milk Of Magnesia) 30 ml PO HS PRN PRN Reason: Constipation Mirtazapine (Remeron) 7.5 mg PO HS [facility] Last Admin: 08/18/17 00:06 Dose: 7.5 mg Nitroglycerin (Nitrostat Sl Tab) 0.4 mg SL Q5MIN [facility] Rosuvastatin Calcium (Crestor) 20 mg PO [facility] Last Admin: 08/17/17 21:55 Dose: 20 mg Sodium Chloride ([place] Baby Saline 30 Ml) 1 ml [place]IN[place]Y Q4H PRN PRN Reason: Dry nasal passages Last Admin: 08/18/17 09:11 Dose: 1 spr Tamsulosin HCl (Flomax) 0.4 mg PO DAILY [facility] Last Admin: 08/18/17 09:13 Dose: 0.4 mg Temazepam (Restoril) 15 mg PO HS PRN PRN Reason: Insomnia Tramadol HCl (Ultram) 50 mg PO TID PRN PRN Reason: Pain, moderate (4-7) Last Admin: 08/17/17 19:34 Dose: 50 mg Trazodone HCl (Desyrel) 50 mg PO HS PRN PRN Reason: Insomnia Last Admin: 08/17/17 21:55 Dose: 50 mg Trimethoprim/Sulfamethoxazole (Bactrim Ss Tab) 1 tab PO DAILY [facility] Last Admin: 08/18/17 09:12 Dose: 1 tab Results - Vital Signs Recent Vital Signs: Last Vital Signs Temp 97.7 F 08/18/17 07:10 Pulse 53 L 08/18/17 07:10 Resp 20 08/18/17 07:10 BP 123/69 08/18/17 07:10 Pulse Ox 99 08/18/17 07:10 - Labs Result Diagrams: 08/18/17 06:58 08/18/17 06:58 Labs: Laboratory Results - last 24 hr 08/17/17 08/18/17 08/18/17 14:01 06:58 06:58 WBC 4.2 L RBC 4.31 L Hgb 13.2 Hct 39.2 MCV 91.0 MCH 30.7 MCHC 33.8 RDW 13.9 Plt Count 194 MPV 9.8 Neut % (Auto) 37.6 L Lymph % (Auto) 33.5 [place] % (Auto) 13.1 H Eos % (Auto) 14.3 H Baso % (Auto) 1.5 Neut # 1.6 L Lymph # 1.4 [place] # 0.5 Eos # 0.6 Baso # 0.1 Sodium 136 Potassium 4.0 Chloride 102 Carbon Dioxide 26 Anion Gap 13 BUN 19 Creatinine 1.2 Est GFR ( Amer) > 60 Est GFR (Non-Af Amer) > 60 Random Glucose 95 Calcium 8.3 L Total Bilirubin 0.3 AST 77 H ALT 70 Alkaline Phosphatase 117 Total Creatine Kinase 151 CK-MB (Mass) 1.09 Troponin I, Quant < 0.0120 Total Protein 6.9 Albumin 3.4 L Globulin 3.6 Albumin/Globulin Ratio 0.9 L
--- NOTE | 2017-08-18 13:52 | CP.PCM.CON ---
Past Patient History - Infectious Disease Hx of Infectious Diseases: None - Past Medical History & Family History Past Medical History?: Yes - Past Social History Smoking Status: Former Smoker - CARDIAC Hx Hypercholesterolemia: Yes Hx Hypertension: Yes Hx Peripheral Edema: Yes - PULMONARY Hx Tuberculosis: No - NEUROLOGICAL Hx Seizures: No - HEENT Hx HEENT Problems: No - RENAL Hx Chronic Kidney Disease: No - ENDOCRINE/METABOLIC Hx Endocrine Disorders: No - HEMATOLOGICAL/ONCOLOGICAL Hx Anemia: Yes Hx Human Immunodeficiency Virus (HIV): Yes - INTEGUMENTARY Hx Dermatological Problems: No Other/Comment: dry skin and feet - MUSCULOSKELETAL/RHEUMATOLOGICAL Hx Falls: Yes - GASTROINTESTINAL Hx Gastrointestinal Disorders: Yes Other/Comment: CONSTIPATION - GENITOURINARY/GYNECOLOGICAL Hx Sexually Transmitted Disorders: No - PSYCHIATRIC Hx Depression: Yes Hx Substance Use: Yes (clean for year) - SURGICAL HISTORY Hx Surgeries: Yes Hx Femoral-Popliteal Bypass Graft: Yes (see below) Other/Comment: fem pop 2015 right leg , may 2016 left leg fem pop by dr narayan - ANESTHESIA Hx Anesthesia: Yes Hx Anesthesia Reactions: No Meds Allergies/Adverse Reactions: Allergies Allergy/AdvReac Type Severity Reaction Status Date / Time No Known Allergies Allergy Verified 07/31/17 09:11 - Medications Medications: Current Medications Acetaminophen (Tylenol 325mg Tab) 650 mg PO Q4H PRN PRN Reason: Pain, Mild (1-3) Amiodarone HCl (Cordarone) 200 mg PO DAILY [facility] Last Admin: 08/18/17 09:15 Dose: Not Given Aspirin (Aspirin Chewable) 81 mg PO DAILY [facility] Last Admin: 08/18/17 09:13 Dose: 81 mg Diltiazem HCl (Cardizem Cd) 120 mg PO DAILY [facility] Last Admin: 08/18/17 09:14 Dose: Not Given Divalproex Sodium (Depakote Sprinkles) 125 mg PO BID [facility] Last Admin: 08/18/17 09:11 Dose: 125 mg Docusate Sodium (Colace) 100 mg PO TID [facility] Last Admin: 08/18/17 13:24 Dose: 100 mg Efavirenz/Emtricitabine/Tenofovir (Atripla 600 Mg-200 Mg-300 Mg) 1 tab PO HS [facility] Last Admin: 08/17/17 21:54 Dose: 1 tab Enoxaparin Sodium (Lovenox) 40 mg SC DAILY [facility] Last Admin: 08/18/17 09:10 Dose: 40 mg Famotidine (Pepcid) 20 mg PO DAILY [facility] Last Admin: 08/18/17 09:13 Dose: 20 mg Fentanyl (Duragesic) 1 patch TD Q72H [facility] Last Admin: 08/17/17 13:36 Dose: 1 patch Ferrous Sulfate (Feosol) 325 mg PO DAILY [facility] Last Admin: 08/18/17 09:13 Dose: 325 mg Fluoxetine HCl (Prozac) 40 mg PO DAILY [facility] Last Admin: 08/18/17 09:11 Dose: 40 mg Gabapentin (Neurontin) 100 mg PO TID [facility] Last Admin: 08/18/17 13:24 Dose: 100 mg Hydrochlorothiazide (Microzide) 12.5 mg PO DAILY [facility] Last Admin: 08/18/17 09:13 Dose: 12.5 mg Isosorbide Mononitrate (Imdur Er) 30 mg PO DAILY [facility] Last Admin: 08/18/17 10:50 Dose: 30 mg Lidocaine (Lidoderm) 1 ea TD DAILY [facility] Last Admin: 08/18/17 09:12 Dose: 1 ea Magnesium Hydroxide (Milk Of Magnesia) 30 ml PO HS PRN PRN Reason: Constipation Mirtazapine (Remeron) 7.5 mg PO HS [facility] Last Admin: 08/18/17 00:06 Dose: 7.5 mg Nitroglycerin (Nitrostat Sl Tab) 0.4 mg SL Q5MIN [facility] Rosuvastatin Calcium (Crestor) 20 mg PO HS [facility] Last Admin: 08/17/17 21:55 Dose: 20 mg Sodium Chloride ([place] Baby Saline 30 Ml) 1 ml [facility] Q4H PRN PRN Reason: Dry nasal passages Last Admin: 08/18/17 09:11 Dose: 1 spr Tamsulosin HCl (Flomax) 0.4 mg PO DAILY [facility] Last Admin: 08/18/17 09:13 Dose: 0.4 mg Temazepam (Restoril) 15 mg PO HS PRN PRN Reason: Insomnia Tramadol HCl (Ultram) 50 mg PO TID PRN PRN Reason: Pain, moderate (4-7) Last Admin: 08/17/17 19:34 Dose: 50 mg Trazodone HCl (Desyrel) 50 mg PO HS PRN PRN Reason: Insomnia Last Admin: 08/17/17 21:55 Dose: 50 mg Trimethoprim/Sulfamethoxazole (Bactrim Ss Tab) 1 tab PO DAILY [facility] Last Admin: 08/18/17 09:12 Dose: 1 tab Results - Vital Signs Recent Vital Signs: Last Vital Signs Temp 97.7 F 08/18/17 07:10 Pulse 53 L 08/18/17 07:10 Resp 20 08/18/17 07:10 BP 123/69 08/18/17 07:10 Pulse Ox 99 08/18/17 07:10 - Labs Result Diagrams: 08/18/17 06:58 08/18/17 06:58 Labs: Laboratory Results - last 24 hr 08/17/17 08/18/17 08/18/17 14:01 06:58 06:58 WBC 4.2 L RBC 4.31 L Hgb 13.2 Hct 39.2 MCV 91.0 MCH 30.7 MCHC 33.8 RDW 13.9 Plt Count 194 MPV 9.8 Neut % (Auto) 37.6 L Lymph % (Auto) 33.5 [place] % (Auto) 13.1 H Eos % (Auto) 14.3 H Baso % (Auto) 1.5 Neut # 1.6 L Lymph # 1.4 [place] # 0.5 Eos # 0.6 Baso # 0.1 Sodium 136 Potassium 4.0 Chloride 102 Carbon Dioxide 26 Anion Gap 13 BUN 19 Creatinine 1.2 Est GFR ( Amer) > 60 Est GFR (Non-Af Amer) > 60 Random Glucose 95 Calcium 8.3 L Total Bilirubin 0.3 AST 77 H ALT 70 Alkaline Phosphatase 117 Total Creatine Kinase 151 CK-MB (Mass) 1.09 Troponin I, Quant < 0.0120 Total Protein 6.9 Albumin 3.4 L Globulin 3.6 Albumin/Globulin Ratio 0.9 L
[2017-08-18 17:31] VITALS: BP 120/69; PULSE 60; TEMP 97.5; O2SAT 94
--- NOTE | 2017-08-20 11:42 | DS ---
Mr. Dinero was admitted to the hospital with chest pain, negative. Seen by . The patient is cleared for discharge. George Glez MD
--- NOTE | 2017-08-20 11:50 | HP ---
HISTORY OF PRESENT ILLNESS: The patient is a 67-year-old male admitted with chief complaint of chest pain and cough. The patient has history of peripheral vascular disease and diabetes. PHYSICAL EXAMINATION: GENERAL: The patient is awake, alert, and oriented. VITAL SIGNS: Temperature 98 and pulse 96. HEENT: Within normal limits. NECK: Supple. CHEST: Symmetrical. HEART: Regular. ABDOMEN: Soft. EXTREMITIES: Has chronic change in the lower extremities. IMPRESSION: Cellulitis . The patient bedrest, supportive care. George Glez MD
--- NOTE | 2017-08-20 16:40 | CARD ---
APPROVED REPORT EKG Measurement Heart [id number] <Conclusion> Normal sinus rhythm Left axis deviation Pulmonary disease pattern Nonspecific T wave abnormality Abnormal ECG
== END 2017-08-18 18:30 | DRG 313 ==
LOC: C.ER 12:48 → C.9E 14:11 → C.6T 17:15 → OBSVTOIN 08-17 14:11
PROVIDERS: ADMIT Internal Medicine Pulmonary Disease; ATTEND Internal Medicine Pulmonary Disease
DX: R07.89 Other chest pain (principal); I25.2 Old myocardial infarction; B20 Human immunodeficiency virus [HIV] disease; E11.51 Type 2 diabetes mellitus with diabetic peripheral angiopathy without gangrene; L03.90 Cellulitis, unspecified; I10 Essential (primary) hypertension; E78.5 Hyperlipidemia, unspecified; Z87.891 Personal history of nicotine dependence; F32.9 Major depressive disorder, single episode, unspecified; E78.00 Pure hypercholesterolemia, unspecified; N40.0 Benign prostatic hyperplasia without lower urinary tract symptoms; G62.9 Polyneuropathy, unspecified

== ENCOUNTER 2017-12-10 10:12 | Day surgery (SDC) | payer MEDICARE, MEDICAID ==
[2017-12-10] MEDS ORDERED: Propofol 10 mg/ml Inj (20 ML) ONE ×2 (11:14→13:44)
[2017-12-10] MEDS ORDERED: Midazolam 2 MG/2 ML VIAL ONE ×2 (11:14→13:43)
[2017-12-10 11:46] LABS: BLOOD UREA NITROGEN 19 mg/dL (9-20); CALCIUM 8.2 mg/dl (8.6-10.4); GFR AFRICAN-AMERICAN > 60; GFR NON-AFRICAN AMERICAN > 60
[2017-12-10] MEDS ORDERED: Lidocaine 1% Inj (20ml) ONE (13:30)
[2017-12-10] MEDS ORDERED: ceFAZolin IV 1 gm in Dextrose 1 GM/50 ML BAG IVPB ONE (13:30)
[2017-12-10] MEDS ORDERED: Bupivacaine HCl 0.25% PF (10 ml) Inj ONE ×2 (13:30→13:31)
[2017-12-10] MEDS ORDERED: Lactated Ringer's 1,000 ML IV ONE ×2 (13:35→14:14)
[2017-12-10] MEDS ORDERED: Lidocaine Hydrochloride 5 ML INJ ONE (13:44)
[2017-12-10] MEDS ORDERED: Oxycodone/Acetaminophen 5/325 mg Tab PO PRN (14:08)
[2017-12-10 15:36] VITALS: PULSE 58; RESP 16; O2SAT 100
[2017-12-10 15:57] VITALS: BP 130/75; TEMP 98.4
--- NOTE | 2017-12-10 23:44 | OP ---
PROCEDURE DATE: 12/10/2017 PREOPERATIVE DIAGNOSIS: Right breast mass. POSTOPERATIVE DIAGNOSIS: Right breast mass. PROCEDURE PERFORMED: Right breast excisional biopsy. SURGEON: Tomasz Celis MD. ANESTHESIA: General. ESTIMATED BLOOD LOSS: 30 mL. POSTOPERATIVE CONDITION: Stable. DESCRIPTION OF PROCEDURE: The patient was taken to the operating room, IV sedation was administered and the right breast area was prepped and draped. Local anesthesia was then infiltrated. An elliptical incision was made surrounding the mass in the upper middle quadrant. It was dissected into the fascial layer and completely removed. Bleeding was controlled using the Bovie. An intercostal blood vessel was repaired and the wound was irrigated with copious amounts of saline solution. Generous tissue flaps were raised along with counter incisions and adjacent tissue transfer closure was performed using multiple layers of Monocryl, subcuticular Monocryl and clips. The patient tolerated the procedure well. Returned to recovery room in stable condition. Tomasz Celis MD
== END 2017-12-10 15:49 | disposition home or self-care (01) ==
LOC: C.SDS 10:12
PROVIDERS: ATTEND Surgery
DX: N62 Hypertrophy of breast (principal)
CPT/HCPCS: 19101; 36415; 80048; 88307; J0690; J2001; J2250; J2704; J3010; J7120